=== PATIENT | female | born 1965 | race Caucasian/White ===

== ENCOUNTER 2020-06-18 16:45 | Inpatient (IN) | payer OTHER, SELFPAY ==
[2020-06-18] VITALS (8 sets, daily range): BP systolic 107–132; BP diastolic 40–59; PULSE 107–118; RESP 12–21; TEMP 37.1–37.7; O2SAT 95–98; BMI 75.6
--- NOTE | ~2020-06-18 | US_ITS ---
EXAMINATION: US ABDOMEN LIMITED CLINICAL INFORMATION: Transaminitis. COMPARISON: None TECHNIQUE: Real-time imaging of the right upper quadrant abdominal viscera. FINDINGS: PANCREAS: The visualized proximal portion of the pancreas is unremarkable. The distal portion is obscured secondary to overlying bowel gas. LIVER: The liver is normal in size. The liver contour is normal. Parenchymal echogenicity appears heterogeneous. No focal hepatic lesion. There is no intrahepatic biliary duct dilatation seen. Portal venous flow appears hepatofugal. GALLBLADDER: There is also distended. Gallbladder wall appears thickened to 0.6 cm. No gallstones are seen. COMMON BILE DUCT: Normal in caliber measuring 0.6 cm in diameter. RIGHT KIDNEY: No hydronephrosis. No renal calculi or focal parenchymal lesions. The kidney measures 13.4 cm in maximum dimension. FREE FLUID: Small volume of free fluid is noted. US/US abdomen limited IMPRESSION: 1. Heterogeneous appearance of the liver parenchyma suggesting underlying chronic liver disease. Portal vein flow appears hepatofugal, suspicious for sequelae of portal hypertension. No ductal dilatation identified. 2. Gallbladder wall thickening, nonspecific in the setting of liver disease and small volume of ascites. No gallstones identified.
--- NOTE | ~2020-06-18 | CT_ITS ---
EXAMINATION: CT HEAD WITHOUT CONTRAST CLINICAL INFORMATION: Altered mental status COMPARISON: None TECHNIQUE: Contiguous axial imaging was performed from the skull base to vertex without intravenous administration of contrast. This CT examination was performed using dose optimization techniques as appropriate, variously including the following: *Automated exposure control *Adjustment of mA and/or kV according to patient size (this includes techniques or standardized protocols for targeted exams where dose is matched to indication/reason for exam; i.e. extremities or head) *Use of iterative reconstruction technique DLP: 764 mGy-cm FINDINGS: No evidence of acute intracranial hemorrhage or extra-axial fluid collection. No evidence of mass lesion, mass effect or midline shift. The ventricles are symmetric in configuration. Basal cisterns are patent. Ventricles are slightly large in size in proportion to sulcal depth in keeping with mild global volume loss. No acute territorial infarction. The calvarium is intact. Limited views of the paranasal sinuses demonstrate multiple mucus retention cysts versus polyps within the right maxillary sinus. No air-fluid levels. Mastoid air cells are well aerated and middle ear cavities are clear. Cerumen within the external auditory canals bilaterally. Orbits unremarkable. CT/CT head/brain wo con IMPRESSION: No acute intracranial pathology.
--- NOTE | 2020-06-18 18:24 | ED.PSYCH ---
HPI - Psych General Chief Complaint: ETOH/Substance Use Stated Complaint: ams etoh Time Seen by Provider: 06/18/20 17:59 Source: patient Mode of arrival: EMS (Called by please) History of Present Illness HPI Narrative: Patient is a 55-year-old female with a past medical history of ulcerative colitis and hypertension who was brought in by EMS after bystanders called 911 because they observed the patient driving around in circles, police arrived and the patient states she was given a choice to go to the hospital or get arrested. The patient states she has not felt like herself since going to bed last night. She cannot elaborate on this further but just says she does not feel right. She states she has her faculties about her but she states something is wrong . She denies chest pain, shortness of breath, fever, nausea, vomiting or diarrhea, vomiting blood, bloody or black stools She denies drinking alcohol today, she denies using any street drugs or prescription drugs. She is focused on calling her mother to let her mother know where she is as she states she only stepped out to go to the grocery store. She does not know her mother's phone number because she does not have her phone on her and she does not have a memorized. Related Data Allergies Allergy/AdvReac Type Severity Reaction Status Date / Time No Known Allergies Allergy Verified 06/18/20 16:58 Review of Systems Review of Systems: Yes all other systems are reviewed and are negative [facility] Past Medical History Medical History No known health problems Social History Social History Alcohol intake: current Smoking Status: Unknown if ever smoked Use of substances other than those prescribed or required for medical reasons: No Advance Directives: No Advance Directives Information Provided: No Physical Exam Vital Signs: Vital Signs: Last Vital Signs Temp 99.6 F 06/18/20 16:52 Pulse 116 H 06/18/20 16:52 Resp 20 06/18/20 16:52 BP 129/46 L 06/18/20 16:52 Pulse Ox 95 06/18/20 16:52 Body Mass Index 75.6 Const: General: cooperative, comfortable, no acute distress and well developed Orientation/consciousness: patient oriented x3 Limitations: no limitations HENMT: Head: Yes normal to inspection Mouth: abnormal oral mucosae (Dried blood inside of mouth and around lips) Eyes: General: appearance normal, both eyes and all related structures Pupils: Equal, round and reactive pupils present EOM: EOMs intact bilaterally Neck: Neck: Yes normal visual inspection, Yes full ROM and Yes supple Resp: Effort & Inspection: normal respiratory effort and able to speak in complete sentences Auscultation: clear to auscultation bilaterally, no crackles, no rales, no rhonchi and no wheezes Cardio: Rate: regular rate Rhythm: regular rhythm Heart sounds: normal S1 and S2 GI: Inspection: Yes normal to inspection Palpation (GI): Soft to palpation and nontender Skin: General skin exam: no rashes or lesions noted Neuro: General: patient oriented x3 Cranial nerves: Yes Equal, round and reactive pupils present Extrem: General: Yes normal to inspection Psych: Appearance: disheveled Speech and movement: Slowed speech present (Psych) Affect: Indifferent affect present Attitude: cooperative Thought process: Illogical thought process present (Slightly) Thought content: Obsession(s) present Insight: Fair insight present (Psych) Judgement: Fair judgement present (Psych) Course Course Course Narrative: Patient is a 55-year-old female with unknown medical history who was brought in by EMS after bystanders called 911 because they observed the patient driving around in circles, police arrived and the patient states she was given a choice to go to the hospital or get arrested. Patient denies using ETOH or drugs and states she has been feeling this way since she went to bed last night. Will get labs, JACK, EtOH and head CT. Received paperwork from [facility] department stating they are requesting the patient is urine and blood work results because she is part of a criminal investigation. I reviewed this with the patient and she did give consent to send me labs over. Once labs and head CT have resulted, I will review with the patient again. Reevaluation(s) Reevaluation #1: Critical lab, hemoglobin is 5.5, hematocrit is 16.5. When queried, patient states that she has had a history of anemia but denies any bloody or black stools, denies vomiting blood. Admits to having had blood transfusions in the past. Stool guiac +. Patient consented to blood transfusion, will order type and screen and 2U RBC's. Head CT negative. Ordered B12 and folate. Will request admission. Time: 19:19 Time: 20:35 Reevaluation #3: Pt gums bleeding, minor amount of blood, ordered coags. Pt may need Vit K Pt to be admitted by Dr Cortes. MDM - Psych Lab Data Result diagrams: 06/18/20 18:45 06/18/20 18:45 Labs: Lab Results 06/18/20 06/18/20 06/18/20 Range/Units 18:45 18:45 18:45 WBC 10.2 (4.8-10.8) X10*3/uL RBC 1.38 L (4.20-5.50) X10*6/uL Hgb 5.5 L* (12.0-16.0) g/dl Hct 16.5 L* (37-47) % MCV 119.6 H (80-98) fL MCH 39.9 H (27.0-33.0) pg MCHC 33.3 (31.0-35.0) g/dl RDW 16.0 (11.0-16.0) % Plt Count 87 L (160-400) X10*3/uL MPV 11.9 (9.4-12.3) fL Immature Gran % (Auto) 1.1 H (0.0-0.4) % Neut % (Auto) 80.1 H (45-73) % Lymph % (Auto) 9.7 L (20-40) % [place] % (Auto) 8.2 (2-11) % Eos % (Auto) 0.4 (0-4) % Baso % (Auto) 0.5 (0-2) % Lymph # (Auto) 1.0 L (1.2-4.9) X10*3/uL [place] # (Auto) 0.8 (0.1-1.2) X10*3/uL Eos # (Auto) 0.0 (0.0-0.4) X10*3/uL Baso # (Auto) 0.1 (0.0-0.2) X10*3/uL Abs Immat Gran (auto) 0.11 H (0.00-0.03) X10*3/uL Absolute Neuts (auto) 8.2 (2.0-8.3) X10*3/uL Absolute Nucleated RBC 0.020 H (0.0-0.012) X10*3/uL Nucleated RBC % (auto) 0.2 (0.0-0.2) /100WBC Sodium 135 (135-145) mmol/L Potassium 5.6 H (3.3-5.1) mmol/L Chloride 107 (96-108) mmol/L Carbon Dioxide 16 L (22-29) mmol/L Anion Gap 18 (12-20) BUN 46 H (9-16) mg/dL Creatinine 1.91 H (0.5-1.4) mg/dL Estim Creat Clear Calc 60.6 Estimated GFR 27 Random Glucose 108 (60-115) mg/dL Calcium 7.9 L (8.4-10.2) mg/dL Total Bilirubin 7.8 H (0.0-1.0) mg/dL AST 117 H (5-31) U/L ALT 39 H (0-31) U/L Alkaline Phosphatase 127 H (39-117) U/L Ammonia 102 H (13-55) umol/L Total Protein 6.8 (6.5-8.0) g/dL Albumin 2.7 L (3.5-5.0) g/dL TSH 3.00 (0.32-4.0) uIU/mL Ethyl Alcohol mg/dL Blood Type Antibody Screen Crossmatch 06/18/20 06/18/20 Range/Units 18:45 19:38 WBC (4.8-10.8) X10*3/uL RBC (4.20-5.50) X10*6/uL Hgb (12.0-16.0) g/dl Hct (37-47) % MCV (80-98) fL MCH (27.0-33.0) pg MCHC (31.0-35.0) g/dl RDW (11.0-16.0) % Plt Count (160-400) X10*3/uL MPV (9.4-12.3) fL Immature Gran % (Auto) (0.0-0.4) % Neut % (Auto) (45-73) % Lymph % (Auto) (20-40) % [place] % (Auto) (2-11) % Eos % (Auto) (0-4) % Baso % (Auto) (0-2) % Lymph # (Auto) (1.2-4.9) X10*3/uL [place] # (Auto) (0.1-1.2) X10*3/uL Eos # (Auto) (0.0-0.4) X10*3/uL Baso # (Auto) (0.0-0.2) X10*3/uL Abs Immat Gran (auto) (0.00-0.03) X10*3/uL Absolute Neuts (auto) (2.0-8.3) X10*3/uL Absolute Nucleated RBC (0.0-0.012) X10*3/uL Nucleated RBC % (auto) (0.0-0.2) /100WBC Sodium (135-145) mmol/L Potassium (3.3-5.1) mmol/L Chloride (96-108) mmol/L Carbon Dioxide (22-29) mmol/L Anion Gap (12-20) BUN (9-16) mg/dL Creatinine (0.5-1.4) mg/dL Estim Creat Clear Calc Estimated GFR Random Glucose (60-115) mg/dL Calcium (8.4-10.2) mg/dL Total Bilirubin (0.0-1.0) mg/dL AST (5-31) U/L ALT (0-31) U/L Alkaline Phosphatase (39-117) U/L Ammonia (13-55) umol/L Total Protein (6.5-8.0) g/dL Albumin (3.5-5.0) g/dL TSH (0.32-4.0) uIU/mL Ethyl Alcohol 113 mg/dL Blood Type O Positive Antibody Screen NEGATIVE Crossmatch See Detail Imaging Data CT scan - head: Attestation: I personally reviewed and interpreted this imaging study as follows: My impression: No acute intracranial pathology Radiologist's impression: [address] [place], [place] [id number] Scan ReportSigned Patient: Sandoval Bonilla#: [id number]: 1965Acct:[id number]/Sex: 55 / FADM Date: 06/18/20Loc: HO.EDAttending Dr: Ordering Physician: Isabella Serra PA-C Date of Service: 06/18/20 Procedure(s): CT head/brain wo con Accession Number(s): [id number] cc: Isabella Serra PA-C~ EXAMINATION: CT HEAD WITHOUT CONTRAST CLINICAL INFORMATION: Altered mental status COMPARISON: None TECHNIQUE: Contiguous axial imaging was performed from the skull base to vertex without intravenous administration of contrast. This CT examination was performed using dose optimization techniques as appropriate, variously including the following: *Automated exposure control *Adjustment of mA and/or kV according to patient size (this includes techniques or standardized protocols for targeted exams where dose is matched to indication/reason for exam; i.e. extremities or head) *Use of iterative reconstruction technique DLP: 764 mGy-cm FINDINGS: No evidence of acute intracranial hemorrhage or extra-axial fluid collection. No evidence of mass lesion, mass effect or midline shift. The ventricles are symmetric in configuration. Basal cisterns are patent. Ventricles are slightly large in size in proportion to sulcal depth in keeping with mild global volume loss. No acute territorial infarction. The calvarium is intact. Limited views of the paranasal sinuses demonstrate multiple mucus retention cysts versus polyps within the right maxillary sinus. No air-fluid levels. Mastoid air cells are well aerated and middle ear cavities are clear. Cerumen within the external auditory canals bilaterally. Orbits unremarkable. CT/CT head/brain wo con IMPRESSION: No acute intracranial pathology. Dictated By:LIZETTE LANDIS MDSigned By:<Electronically signed by LIZETTE LANDIS MD in OV>06/18/201926 DD/ 182TD/TT: Sales Account Director: SB Discharge Plan Discharge Clinical Impression: Alcoholic intoxication, Anemia, Elevated liver function tests, Acute hyperkalemia Patient Disposition: Admitted As Inpatient
[2020-06-18 18:53] LABS: MANUAL DIFF FLAG NO
[2020-06-18 18:54] LABS: Basophils Absolute Auto 0.1 X10*3/uL (0.0-0.2); Basophils Percent Auto 0.5 % (0-2); Eosinophils Percent Auto 0.4 % (0-4); Imm Gran Abs Auto 0.11 X10*3/uL (0.00-0.03); Imm Gran Pct Auto 1.1 % (0.0-0.4); Lymphocytes Percent Auto 9.7 % (20-40); Mean Corpuscular HGB Conc 33.3 g/dl (31.0-35.0); Mean Corpuscular Hemoglobin 39.9 pg (27.0-33.0); Mean Platelet Volume 11.9 fL (9.4-12.3); Monocytes Absolute Auto 0.8 X10*3/uL (0.1-1.2); Monocytes Percent Auto 8.2 % (2-11); NRBC Pct Auto 0.2 /100WBC (0.0-0.2); Neutrophils Absolute Auto 8.2 X10*3/uL (2.0-8.3); Neutrophils Percent Auto 80.1 % (45-73); Red Blood Count 1.38 X10*6/uL (4.20-5.50); White Blood Count 10.2 X10*3/uL (4.8-10.8)
[2020-06-18 18:57] LABS: Hematocrit 16.5 % (37-47); Mean Corpuscular Volume 119.6 fL (80-98); Platelet Count 87 X10*3/uL (160-400)
[2020-06-18 19:03] LABS: Hemoglobin 5.5 g/dl (12.0-16.0)
[2020-06-18 19:16] LABS: Ammonia 102 umol/L (13-55)
[2020-06-18 19:21] LABS: Ethanol 113 mg/dL
[2020-06-18 19:34] LABS: Alanine Aminotransferase 39 U/L (0-31); Albumin Level 2.7 g/dL (3.5-5.0); Alkaline Phosphatase 127 U/L (39-117); Anion Gap 18 (12-20); Aspartate Amino Transferase 117 U/L (5-31); Bilirubin Total 7.8 mg/dL (0.0-1.0); Blood Urea Nitrogen 46 mg/dL (9-16); Calcium 7.9 mg/dL (8.4-10.2); Carbon Dioxide 16 mmol/L (22-29); Chloride 107 mmol/L (96-108); Creatinine Clr Calc Pharmacy 60.6; Estimated Glomerular Filt Rate 27; Glucose Random 108 mg/dL (60-115); Potassium 5.6 mmol/L (3.3-5.1); Sodium 135 mmol/L (135-145); Total Protein 6.8 g/dL (6.5-8.0)
--- NOTE | 2020-06-18 19:47 | PC.NURSE ---
pt in with provider, type an screen drawn.
[2020-06-18 20:55] LABS: Amphetamine Screen Urine Not Detected (Not Detect); Barbiturates, Urine Not Detected (Not Detect); Benzodiazepines Screen Urine Not Detected (Not Detect); Cannabinoid Screen Urine Not Detected (Not Detect); Cocaine Screen Urine Not Detected (Not Detect); Opiate Screen Urine Not Detected (Not Detect); Phencyclidine Screen Urine Not Detected (Not Detect)
[2020-06-18] MEDS: Calcium Gluconate/NaCl,Iso-Osm 1 GM/50 ML PLAST..BAG IV (21:19)
--- NOTE | 2020-06-18 21:59 | PC.NURSE ---
pt requesting to see provider. provider is aware.
--- NOTE | 2020-06-18 22:08 | PC.NURSE ---
pt reports drinking half a pint of [place] marn[place] daily. provider notified.
--- NOTE | 2020-06-18 22:11 | P.HPHOSP_ITS ---
History of Present Illness Date of Service: 06/18/20 Chief Complaint: weakness, altered This is a 55-year-old female with past medical history of alcohol abuse, ulcerative colitis who presents to the hospital after the police was called on her for driving erratically in a parking lot. Patient reports that she was grocery shopping and maybe her neighbor called the police because she was told she was driving erratically. She did feel dizzy starting last night, has been feeling weak since last night, denies having any chest pain, no shortness of breath, no headache, no change in vision, no abdominal pain nausea or vomiting, she reports that since being in the ED she started vomiting from her mouth although she feels that has to do with her gums and not to do with her vomiting blood or coughing up blood. She denies having any bright red blood per rectum, denies any melena or tarry stools. She denies using any NSAIDs. She is in clear alcohol withdrawal but when I asked her about her alcohol habits reports that she drinks about 1 to 2 times a week and only about 1-2 glasses of wine but tells me that she feels like she is withdrawing right now. She is also alcohol positive on arrival to the ED although denies drinking alcohol today. Reports her last drink was 2 days ago. On arrival to the ED patient has a temp of 99.6, heart rate of 116, blood pressure of 129/46 respiratory rate of 20, satting 95% on room air Labs are significant for WBC count of 10.2, hemoglobin of 5.5 with no previous level for comparison, hematocrit of 16.5, PT of 30.7 INR of 2.8, platelet count of 87, sodium of 135, potassium 5.6, BUN of 46, creatinine of 1.91 (no previous), she has calcium of 7.9, total bili of 7.8, AST of 117, ALT of 39, alk-phos of 127, ammonia of 102, albumin of 2.7, occult stool blood positive She tells me that she usually undergoes colonoscopy every 3 years, last colonoscopy was 2 years ago and they found polyps, reports that her applications support analyst was concerned about these polyps although they were benign. She right now adamantly refuses to be seen by applications support analyst and or have any EGD or colonoscopy in-patient and would like to follow-up with her applications support analyst as patient. She is agreeable to be admitted for treatment of anemia and alcohol withdrawal. Review of Systems Review of Systems: Yes all other systems are reviewed and are negative [facility] Medical History (Updated 06/19/20 @ 05:52 by Juan Jose Moore MD) Hypertension Ulcerative colitis Family History Mother No problems noted. Father Prostate cancer Surgical History (Updated 06/19/20 @ 05:46 by Juan Jose Moore MD) History of appendectomy History of Social History Household Members: Children Housing: House Do you presently have visiting nurse or other home services: No Alcohol intake: current Smoking Status: Unknown if ever smoked Use of substances other than those prescribed or required for medical reasons: No Advance Directives: No Advance Directives Information Provided: No Do you have thoughts of harming others: None Do you have a plan to hurt others: No Plan Recently lost weight without trying: No Meds Allergies Allergy/AdvReac Type Severity Reaction Status Date / Time No Known Allergies Allergy Verified 06/18/20 16:58 Active Medications: Current Medications Generic Name Dose Route Start Last Admin Trade Name Freq PRN Reason Stop Dose Admin Pharmacy Consult 1 each 06/18/20 19:55 Consult Rx Perform Med Rec MISCELLANE ONCE PRN Consult order Pharmacy Consult 1 each 06/18/20 22:10 Consult Rx Etoh Phenob Dosing MISCELLANE 06/18/20 22:11 ONCE ONE Protocol Home Medications Medication Instructions Recorded Confirmed Last Taken Type lisinopril 1 tab PO BEDTIME 06/18/20 06/18/20 06/17/20 History metoprolol succinate 1 tab PO DAILY 06/18/20 06/18/20 06/17/20 History trazodone 1 tab PO DAILY 06/18/20 06/18/20 06/17/20 History Physical Exam Vital Signs and Narrative: Vital Signs: Last Vital Signs Temp 99.4 F 06/18/20 21:17 Pulse 115 H 06/18/20 22:03 Resp 17 06/18/20 22:03 BP 117/51 L 06/18/20 22:03 Pulse Ox 98 06/18/20 22:03 Body Mass Index 75.6 Const: General: cooperative Orientation/consciousness: patient oriented x3 Eyes: Other: Sclera icterus Resp: Effort & Inspection: normal respiratory effort Cardio: Rate: regular rate Rhythm: regular rhythm GI: Palpation (GI): Soft to palpation Auscultation: normal bowel sounds Skin: Other: Jaundice Neuro: Other: Slow responding, has asterixis General: patient oriented x3 Extrem: General: Yes normal to inspection and Yes no pedal edema Results Labs CBC and Chem 7: 06/18/20 18:45 06/18/20 18:45 Labs: Laboratory Results - last 24 hr 06/18/20 06/18/20 06/18/20 18:45 18:45 18:45 MCV 119.6 H MCH 39.9 H MCHC 33.3 RDW 16.0 Plt Count 87 L MPV 11.9 Immature Gran % (Auto) 1.1 H Neut % (Auto) 80.1 H Lymph % (Auto) 9.7 L [place] % (Auto) 8.2 Eos % (Auto) 0.4 Baso % (Auto) 0.5 Lymph # (Auto) 1.0 L [place] # (Auto) 0.8 Eos # (Auto) 0.0 Baso # (Auto) 0.1 Abs Immat Gran (auto) 0.11 H Absolute Neuts (auto) 8.2 Absolute Nucleated RBC 0.020 H Nucleated RBC % (auto) 0.2 Anion Gap 18 Estim Creat Clear Calc 60.6 Estimated GFR 27 Random Glucose 108 Calcium 7.9 L Total Bilirubin 7.8 H AST 117 H ALT 39 H Alkaline Phosphatase 127 H Ammonia 102 H Total Protein 6.8 Albumin 2.7 L TSH 3.00 Urine Opiates Screen Ur Barbiturates Screen Ur Phencyclidine Scrn Ur Amphetamines Screen U Benzodiazepines Scrn Urine Cocaine Screen U Marijuana (THC) Screen Ethyl Alcohol Blood Type Antibody Screen Crossmatch 06/18/20 06/18/20 06/18/20 18:45 19:38 20:14 MCV MCH MCHC RDW Plt Count MPV Immature Gran % (Auto) Neut % (Auto) Lymph % (Auto) [place] % (Auto) Eos % (Auto) Baso % (Auto) Lymph # (Auto) [place] # (Auto) Eos # (Auto) Baso # (Auto) Abs Immat Gran (auto) Absolute Neuts (auto) Absolute Nucleated RBC Nucleated RBC % (auto) Anion Gap Estim Creat Clear Calc Estimated GFR Random Glucose Calcium Total Bilirubin AST ALT Alkaline Phosphatase Ammonia Total Protein Albumin TSH Urine Opiates Screen Not Detected Ur Barbiturates Screen Not Detected Ur Phencyclidine Scrn Not Detected Ur Amphetamines Screen Not Detected U Benzodiazepines Scrn Not Detected Urine Cocaine Screen Not Detected U Marijuana (THC) Screen Not Detected Ethyl Alcohol 113 Blood Type O Positive Antibody Screen NEGATIVE Crossmatch See Detail Imaging Radiologist's Impressions: Impressions Head CT 06/18/20 18:23 IMPRESSION: No acute intracranial pathology. Assessment and Plan (1) Macrocytic anemia: Status: Acute (2) Hyperammonemia: Status: Acute (3) Hyperbilirubinemia: Status: Acute (4) Alcoholic intoxication: Qualifiers: Complication of substance-induced condition: uncomplicated Qualified Code(s): F10.920 - Alcohol use, unspecified with intoxication, uncomplicated Status: Acute (5) Transaminitis: Status: Acute (6) Alcohol withdrawal: Status: Acute (7) Coagulopathy: Status: Acute This is a 55-year-old female with past medical history of ulcerative colitis as well as hypertension who presents to the hospital shown to have anemia as well as an alcohol withdrawal # macrocytic anemia - most likely multifactorial, patient does have positive stool occult blood, she also drinks alcohol therefore most likely B12 and folic acid deficient - no previous level to compare her hemoglobin 2, currently 5.5, - receiving 2 units of PRBC in the ED - patient is very adamant and refusing to be seen by GI and having, scope p.m. patient - will follow H&H with a threshold of above 7 hemoglobin and transfuse if necessary # alcohol withdrawal - alcohol level positive on arrival, patient very tremulous, tachycardic and is going through withdrawals actively - will start her on phenobarb protocol - thiamine and folic acid # hyperammonemia - most likely secondary to liver cirrhosis although no imaging it to confirm - although she is alert, oriented she is slow to answer questions - will start her on lactulose - follow mentation # coagulopathy - most likely secondary to liver cirrhosis in the setting of alcohol abuse - elevated INR of 2.8 - will give 1 dose of vitamin K - follow PT INR # transaminitis - most likely secondary to alcohol abuse and liver failure - has hyperbilirubinemia, hypoalbuminemia, elevated AST ALT, alk-phos - will obtain abdominal ultrasound - monitor with LFTs # hypertension - continue lisinopril DVT prophylaxis: SCDs
[2020-06-18 22:33] LABS: INTERNATIONAL NORM RATIO 2.8 (0.9-1.1); Prothrombin Time 33.7 SEC (10.8-13.0)
[2020-06-18 22:35] LABS: Partial Thromboplastin Time 49.1 SEC (24.1-38.0)
[2020-06-18 22:43] LABS: COVID-19 Test Negative (Negative)
[2020-06-18] MEDS: PHENobarbitaL sodium 130 MG/ML VIAL 219 MG IM (23:01)
[2020-06-19] VITALS (15 sets, daily range): BP systolic 130–152; BP diastolic 60–70; PULSE 91–118; RESP 16–22; TEMP 36.7–37.9; O2SAT 92–97
--- NOTE | 2020-06-19 01:34 | PC.NURSE ---
2300 REPORT FROM AIDA GODOY. PT SLEEPING, EASILY AROUSABLE TO VERBAL STIMULI. SKIN WARM AND DRY. RESP UNLABORED. DENIES N/V. TOLERATED SMALL AMOUNT OF FOOD ON PREVIOUS SHIFT. SECOND UNIT OF BLOOD INFUSING. 0000 - PT SLEEPING. NO DISTRESS NOTED. SINUS TACH 107-114. SATS 92-93% WHEN SLEEPING. O2 2L NC APPLIED. PT UPDATED ON PLAN AND AGREEABLE. 0115 - REPORT CALLED TO [facility] ON IM. [place] [facility] [place]
[2020-06-19] MEDS: PHENobarbitaL sodium 130 MG/ML VIAL 164 MG IM ×2 (02:33→05:29)
[2020-06-19] MEDS: 0.9 % Sodium Chloride Flush 3 ML SYRINGE IVFLUSH ×3 (02:35→17:11)
[2020-06-19] MEDS: Lactulose 20 GM/30 ML SOLUTION 30 GM PO ×2 (06:30→19:51)
[2020-06-19] MEDS: Lactated Ringers 1,000 ML 100 ML IVCONT (06:30)
[2020-06-19] MEDS: Phytonadione (Vit K1) 2.5 MG in 0.9 % Sodium Chloride 50 ML 50.25 MG IV (06:46)
[2020-06-19 06:53] LABS: Hemoglobin 7.1 g/dl (12.0-16.0); MANUAL DIFF FLAG SCAN; Mean Corpuscular Volume 107.2 fL (80-98); PLT CLUMP 1; SCAN SMEAR FLAG 1
[2020-06-19 06:57] LABS: Basophils Absolute Auto 0.1 X10*3/uL (0.0-0.2); Basophils Percent Auto 0.6 % (0-2); Eosinophils Absolute Auto 0.1 X10*3/uL (0.0-0.4); Eosinophils Percent Auto 0.9 % (0-4); Imm Gran Abs Auto 0.14 X10*3/uL (0.00-0.03); Imm Gran Pct Auto 1.3 % (0.0-0.4); Lymphocytes Absolute Auto 1.2 X10*3/uL (1.2-4.9); Lymphocytes Percent Auto 11.5 % (20-40); Mean Corpuscular HGB Conc 34.1 g/dl (31.0-35.0); Mean Corpuscular Hemoglobin 36.6 pg (27.0-33.0); Mean Platelet Volume 12.3 fL (9.4-12.3); Monocytes Absolute Auto 1.2 X10*3/uL (0.1-1.2); Monocytes Percent Auto 11.6 % (2-11); Neutrophils Absolute Auto 7.8 X10*3/uL (2.0-8.3); Neutrophils Percent Auto 74.1 % (45-73); Red Blood Count 1.94 X10*6/uL (4.20-5.50); Red Cell Distribution Width 20.9 % (11.0-16.0); White Blood Count 10.5 X10*3/uL (4.8-10.8)
[2020-06-19 07:12] LABS: Alanine Aminotransferase 37 U/L (0-31); Albumin Level 2.5 g/dL (3.5-5.0); Alkaline Phosphatase 117 U/L (39-117); Anion Gap 16 (12-20); Aspartate Amino Transferase 104 U/L (5-31); Bilirubin Direct 3.4 mg/dL (0.0-0.5); Bilirubin Total 8.7 mg/dL (0.0-1.0); Blood Urea Nitrogen 44 mg/dL (9-16); Calcium 8.1 mg/dL (8.4-10.2); Carbon Dioxide 19 mmol/L (22-29); Chloride 108 mmol/L (96-108); Creatinine Clr Calc Pharmacy 75.2; Estimated Glomerular Filt Rate 35; Glucose Random 110 mg/dL (60-115); Sodium 138 mmol/L (135-145); Total Protein 6.4 g/dL (6.5-8.0)
[2020-06-19 07:22] LABS: HBsAGNum1 0.19 S/CO (0.00-0.99); Hepatitis B Surface Antigen Negative (Negative); ~HepC Num1 0.23 S/CO (0.00-0.79); ~Hepatitis C Antibody Nonreactive (Nonreactive)
[2020-06-19 07:42] LABS: HBS Num1 > 1000.00 mIU/mL (0-7.99); HBc Num1 0.13 S/CO (0.00-0.79); Hepatitis A Antibody IgM 0.15 Index (0-0.79); Hepatitis B Core Antibody Nonreactive (Nonreactive); ~Hepatitis A Antibody IgM Nonreactive (Nonreactive); ~Hepatitis B Surface Antibody REACTIVE (Nonreactive)
[2020-06-19 07:46] LABS: Platelet Count 59 X10*3/uL (160-400)
[2020-06-19 07:47] LABS: Hematocrit 20.8 % (37-47)
[2020-06-19] MEDS: Folic Acid 1 MG TABLET PO (08:40)
[2020-06-19] MEDS: Thiamine HCL 100 MG TABLET PO (08:40)
[2020-06-19] MEDS: traZODone HCL 50 MG TABLET PO (08:40)
[2020-06-19] MEDS: Metoprolol Succinate ER 25 MG TAB.ER.24H PO (08:40)
--- NOTE | 2020-06-19 10:57 | MHC.CLN ---
WT USED FOR NUTRITION ASSESSMENT 75.6KG BMI 28.6 RECOMMEND ADMISSION RE-WEIGHT
--- NOTE | 2020-06-19 13:34 | HO.PM.IMPN ---
Subjective Subjective Date of Service: 06/19/20 Interval History: the patient was seen and evaluated this morning Laying in bed, feels anxious and having tremors Blood level improved to 7.1 after 2 units transfusion Denies any fever, chills or shortness of breath No reported other overnight events. Systemic review: Reported anxiety and tremors No chest pain, palpitation No shortness of breath or coughing No abdominal pain, nausea or vomiting No urinary symptoms No any rash or wounds Physical Exam Vital Signs: Vital Signs: Last Vital Signs Temp 99.4 F 06/19/20 11:57 Pulse 94 06/19/20 11:57 Resp 20 06/19/20 11:57 BP 133/61 06/19/20 11:57 Pulse Ox 93 06/19/20 11:57 Body Mass Index 75.6 Const: Other: Constitutional : Alert, oriented, not in distress Neck : Normal inspection, Supple Cardiovascular : RRR, S1 S2, no lower extremity edema Respiratory : Good bilateral air entry, no crackles, wheezes or rhonchi Gastrointestinal: soft, lax, Normal bowel sounds, mildly distended, nontender Skin : Warm/Dry, No rash Neurological : Alert & oriented, No focal deficit Objective Data Current Medications Generic Name Dose Route Start Last Admin Trade Name Freq PRN Reason Stop Dose Admin Acetaminophen 650 mg 06/19/20 01:13 Acetaminophen 325 Mg Tablet PO Q6H PRN Pain, Mild (Pain Scale 1-3) Docusate Sodium 100 mg 06/19/20 01:13 Docusate Sodium 100 Mg Capsule PO DAILY PRN Constipation Folic Acid 1 mg 06/19/20 09:00 06/19/20 08:40 Folic Acid 1 Mg Tablet PO 1 mg DAILY CHARLEE Administration Lactated Ringer's 1,000 mls @ 100 mls/hr 06/19/20 05:45 06/19/20 06:30 Lr IVCONT 100 mls/hr .Q10H CHARLEE Administration Lactulose 30 gm 06/19/20 05:45 06/19/20 06:30 Lactulose 20 Gm/30 Ml Solution PO 30 gm TID CHARLEE Administration Metoprolol Succinate 25 mg 06/19/20 09:00 06/19/20 08:40 Metoprolol Succinate Er 25 Mg Tab.Er.24h PO 25 mg DAILY CHARLEE Administration Protocol Ondansetron HCl 4 mg 06/19/20 01:13 Ondansetron Hcl 4 Mg/2 Ml Vial IVPUSH Q8H PRN Nausea and Vomiting Pharmacy Consult 1 each 06/18/20 19:55 Consult Rx Perform Med Rec MISCELLANE ONCE PRN Consult order Phenobarbital 45 mg 06/19/20 21:00 Phenobarbital 15 Mg Tablet PO 06/21/20 09:01 BID [facility] Protocol Phenobarbital 15 mg 06/24/20 09:00 Phenobarbital 15 Mg Tablet PO 06/25/20 09:01 DAILY [facility] Protocol Phenobarbital 15 mg 06/21/20 21:00 Phenobarbital 15 Mg Tablet PO 06/23/20 09:01 BID CHARLEE Protocol Sodium Chloride 3 ml 06/19/20 01:13 06/19/20 08:41 0.9 % Sodium Chloride Flush 3 Ml Syringe IVFLUSH 3 ml QSHIFT CHARLEE Administration Thiamine HCl 100 mg 06/19/20 09:00 06/19/20 08:40 Thiamine Hcl 100 Mg Tablet PO 100 mg DAILY CHARLEE Administration Trazodone HCl 50 mg 06/19/20 09:00 06/19/20 08:40 Trazodone Hcl 50 Mg Tablet PO 50 mg DAILY CHARLEE Administration Labs CBC & Chem 7: 06/19/20 05:15 06/19/20 05:15 Assessment and Plan (1) Macrocytic anemia: Status: Acute (2) Hyperammonemia: Status: Acute (3) Hyperbilirubinemia: Status: Acute (4) Alcoholic intoxication: Status: Acute (5) Transaminitis: Status: Acute (6) Alcohol withdrawal: Status: Acute (7) Coagulopathy: Status: Acute Assessment and Plan: This is a 55-year-old female with past medical history of ulcerative colitis as well as hypertension who presents to the hospital shown to have anemia as well as an alcohol withdrawal Symptomatic anemia GI bleed likely multifactorial, GIB, alcoholism, coagulopathy Improved to 7.1 from 5.5 after 2 units transfusion To give 3rd unit To get GI evaluation Monitor for bleeding Threshold of 7 to transfuse alcohol withdrawal Anxious, have significant tremors this morning Continue phenobarb protocol To give extra dose of phenobarbital Continue thiamine and folic acid Discussed need of quitting, she is not interested in talking to anyone about it as she has her own plan hyperammonemia Ultrasound showing chronic liver disease Keep on lactulose with target of 2 bowel movements daily coagulopathy elevated INR of 2.8 Received 1 dose of vitamin K follow PT INR transaminitis secondary to alcohol abuse and liver failure Abdominal ultrasound showing no obstruction but chronic liver disease Monitor LFT hypertension continue lisinopril Thrombocytopenia Platelets low likely secondary to alcoholism continue to monitor DVT prophylaxis: SCDs
--- NOTE | 2020-06-19 14:05 | MHC.CM.PN ---
Female 55 DX gib etoh withdrawl. She lives with her DTR. She is independent all functional mobility. DP home no services family transport.
[2020-06-19] MEDS: PHENobarbitaL sodium 65 MG/ML VIAL 130 MG IM (14:15)
[2020-06-19] MEDS: Octreotide Acetate 500 MCG in 0.9 % Sodium Chloride 500 ML 25.05 MCG IVCONT (18:06)
--- NOTE | 2020-06-19 18:55 | PC.NURSE ---
1636 Visible small amounts of blood noted coming from patients mouth. Increase in wipes with trace amounts of blood also noted in trash. Patient stated she noted that the bleeding had started the day prior. Dr. Castro made aware. Octerotide drip ordered and administered per JUN. Patient has no further complaints at this time.
[2020-06-19] MEDS: Sucralfate Oral Suspension 1 GM/10 ML ORAL.SUSP PO (19:49)
[2020-06-19] MEDS: PHENobarbitaL 15 MG TABLET 45 MG PO (19:50)
[2020-06-20] VITALS (7 sets, daily range): BP systolic 126–149; BP diastolic 53–66; PULSE 81–96; RESP 18–20; TEMP 36–37.8; O2SAT 91–98
[2020-06-20] MEDS: 0.9 % Sodium Chloride Flush 3 ML SYRINGE IVFLUSH ×4 (00:05→23:00)
[2020-06-20 06:35] LABS: Ammonia 89 umol/L (13-55)
[2020-06-20] MEDS: Sucralfate Oral Suspension 1 GM/10 ML ORAL.SUSP PO ×4 (07:20→19:36)
[2020-06-20 07:22] LABS: Hematocrit 23.1 % (37-47); Mean Corpuscular HGB Conc 34.6 g/dl (31.0-35.0); Mean Corpuscular Hemoglobin 36.2 pg (27.0-33.0); Mean Corpuscular Volume 104.5 fL (80-98); Mean Platelet Volume 12.7 fL (9.4-12.3); NRBC Pct Auto 0.2 /100WBC (0.0-0.2); Red Blood Count 2.21 X10*6/uL (4.20-5.50); Red Cell Distribution Width 23.9 % (11.0-16.0); White Blood Count 10.9 X10*3/uL (4.8-10.8)
[2020-06-20 07:27] LABS: INTERNATIONAL NORM RATIO 2.6 (0.9-1.1); Prothrombin Time 31.3 SEC (10.8-13.0)
[2020-06-20 07:29] LABS: Platelet Count 64 X10*3/uL (160-400)
[2020-06-20 07:37] LABS: Alanine Aminotransferase 35 U/L (0-31); Albumin Level 2.5 g/dL (3.5-5.0); Alkaline Phosphatase 112 U/L (39-117); Anion Gap 12 (12-20); Aspartate Amino Transferase 89 U/L (5-31); Bilirubin Direct 3.3 mg/dL (0.0-0.5); Bilirubin Total 10.3 mg/dL (0.0-1.0); Blood Urea Nitrogen 40 mg/dL (9-16); Carbon Dioxide 21 mmol/L (22-29); Chloride 109 mmol/L (96-108); Creatinine Clr Calc Pharmacy 72.8; Estimated Glomerular Filt Rate 34; Glucose Random 142 mg/dL (60-115); Sodium 137 mmol/L (135-145); Total Protein 6.2 g/dL (6.5-8.0)
[2020-06-20] MEDS: Metoprolol Succinate ER 25 MG TAB.ER.24H PO (07:59)
[2020-06-20] MEDS: Folic Acid 1 MG TABLET PO (08:00)
[2020-06-20] MEDS: Thiamine HCL 100 MG TABLET PO (08:00)
[2020-06-20] MEDS: PHENobarbitaL 15 MG TABLET 45 MG PO ×2 (08:02→19:33)
[2020-06-20] MEDS: Lactulose 20 GM/30 ML SOLUTION 30 GM PO ×2 (08:02→19:33)
--- NOTE | 2020-06-20 09:46 | PM.GICN ---
History of Present Illness Data of Consult Service Date: 06/20/20 Requesting physician: Yohana Castro Primary Care Provider: Bridget Platt--PCP; MD Farheen--GI HPI Reason for consult: Anemia/severe; ?hx of liver disease?;Hx of alcohol abuse, AltMental status 55 yo female who was brought to the ER for altered behavior:? of confusion, Mild elevation of alcohol level. The initial record lists known medical hx as Hypertension, ulcerative colitis. No documentation of alcohol hx or her UC. After meeting with patient earlier today she says she has had the U. Colitis diagnosis for a number of years. Her current [employer] is Dr. Lowe. He did a colo in ?2019.([facility]) She says that he saw evidence of ? scarring. She is not sure how much active inflamation there was. She has chosen not to take medication but is not really clear as to why. She is not on any treatment. She feels the disease may be more active due to over a month of diarrhea. She is not really seeing any blood. She admits to recent increase in drinking alcohol: 1/2 pint of [place] daily. She says this drinking has been present for about 1-2 months. She does admit that she has been under stress both @ home and work. She thinks she remembers that a few years ago she had been seeing Dr. Patel and there was some concern about her liver.(She recalls no specifics.) She has also not been eating very healthy for several months. Her weight has increased recently. She knows she is very sick. She says she will stop drinking. Review of Systems Constitutional: Constitutional: Reports difficulty sleeping, Reports lethargy, Reports malaise, Reports poor appetite and Reports weight gain ENT: Denies odynophagia Cardiovascular: Cardiovascular: Denies chest pain, Denies chest pain with activity, Denies epigastric discomfort, Denies irregular heart rhythm and Reports leg edema Respiratory: Comments: Patient denies any hx of asthma, sleep apnea. She never smoked. Gastrointestinal: Gastrointestinal: Reports as per HPI, Reports diarrhea, Denies odynophagia and Denies hematemesis Neurologic: Reports confusion (noted by others not herself--on admission) Comments: ER visit says she had been stopped prior to coming in to the ER because she was driving erratically. She says she was not drunk. Psychiatric: Psychiatric: Reports confusion (noted by others not herself--on admission) [facility] Past Medical History Medical History (Updated 06/20/20 @ 17:44 by Tere Verdugo MD) Hypertension Morbid obesity due to excess calories Ulcerative colitis Family History Family History (Updated 06/20/20 @ 17:52 by Tere Verdugo MD) Mother No problems noted. Father Prostate cancer Cirrhosis, alcoholic Brother No problems noted. Sister Heavy alcohol use Surgical History Surgical History (Updated 06/20/20 @ 17:44 by Tere Verdugo MD) History of appendectomy History of Hx of colonoscopy Social History Social History (Updated 06/20/20 @ 17:46 by Tere Verdugo MD) Household Members: Children Household Members Other:: 20 yo daughter just moved back in due to Covid. She is vegetarian/?conflict Housing: House Do you presently have visiting nurse or other home services: No Alcohol intake: current Smoking Status: Unknown if ever smoked Use of substances other than those prescribed or required for medical reasons: No Currently Displaying Signs/Symptoms of Drug Intoxication Withdrawal: No Advance Directives: No Advance Directives Information Provided: No Do you have thoughts of harming others: None Do you have a plan to hurt others: No Plan Recently lost weight without trying: No service: No Current occupational status: employed Meds Allergies Allergy/AdvReac Type Severity Reaction Status Date / Time No Known Allergies Allergy Verified 06/18/20 16:58 Active Medications: Current Medications Generic Name Dose Route Start Last Admin Trade Name Hilarioq PRN Reason Stop Dose Admin Acetaminophen 650 mg 06/19/20 01:13 Acetaminophen 325 Mg Tablet PO Q6H PRN Pain, Mild (Pain Scale 1-3) Docusate Sodium 100 mg 06/19/20 01:13 Docusate Sodium 100 Mg Capsule PO DAILY PRN Constipation Folic Acid 1 mg 06/19/20 09:00 06/20/20 08:00 Folic Acid 1 Mg Tablet PO 1 mg DAILY CHARLEE Administration Octreotide Acetate 500 mcg/ 501 mls @ 25.05 mls/hr 06/19/20 16:45 06/19/20 18:06 Sodium Chloride IVCONT 25 mcg/hr .Q20H CHARLEE 25.05 mls/hr Administration 25 MCG/HR Lactulose 30 gm 06/19/20 21:00 06/20/20 08:02 Lactulose 20 Gm/30 Ml Solution PO 30 gm BID CHARLEE Administration Metoprolol Succinate 25 mg 06/19/20 09:00 06/20/20 07:59 Metoprolol Succinate Er 25 Mg Tab.Er.24h PO 25 mg DAILY CHARLEE Administration Protocol Ondansetron HCl 4 mg 06/19/20 01:13 Ondansetron Hcl 4 Mg/2 Ml Vial IVPUSH Q8H PRN Nausea and Vomiting Pharmacy Consult 1 each 06/18/20 19:55 Consult Rx Perform Med Rec MISCELLANE ONCE PRN Consult order Phenobarbital 45 mg 06/19/20 21:00 06/20/20 08:02 Phenobarbital 15 Mg Tablet PO 06/21/20 09:01 45 mg BID CHARLEE Administration Protocol Phenobarbital 15 mg 06/24/20 09:00 Phenobarbital 15 Mg Tablet PO 06/25/20 09:01 DAILY [facility] Protocol Phenobarbital 15 mg 06/21/20 21:00 Phenobarbital 15 Mg Tablet PO 06/23/20 09:01 BID [facility] Protocol Sodium Chloride 3 ml 06/19/20 01:13 06/20/20 07:22 0.9 % Sodium Chloride Flush 3 Ml Syringe IVFLUSH 3 ml QSHIFT [facility] Administration Sucralfate 1 gm 06/19/20 21:00 06/20/20 07:20 Sucralfate Oral Suspension 1 Gm/10 Ml Oral.Susp PO 1 gm QIDACHS [facility] Administration Thiamine HCl 100 mg 06/19/20 09:00 06/20/20 08:00 Thiamine Hcl 100 Mg Tablet PO 100 mg DAILY [facility] Administration Trazodone HCl 50 mg 06/19/20 09:00 06/20/20 09:19 Trazodone Hcl 50 Mg Tablet PO Not Given DAILY [facility] Home Medications Medication Instructions Recorded Confirmed Last Taken Type lisinopril 1 tab PO BEDTIME 06/18/20 06/18/20 06/17/20 History metoprolol succinate 1 tab PO DAILY 06/18/20 06/18/20 06/17/20 History trazodone 1 tab PO DAILY 06/18/20 06/18/20 06/17/20 History Physical Exam Vital Signs: Vital Signs: Last Vital Signs Temp 99.9 F 06/20/20 08:00 Pulse 96 06/20/20 08:00 Resp 18 06/20/20 08:00 BP 139/59 L 06/20/20 08:00 Pulse Ox 96 06/20/20 08:00 Body Mass Index 75.6 Const: General: confusion (noted by others not herself--on admission) Orientation/consciousness: patient oriented x3 and confusion (noted by others not herself--on admission) Resp: Effort & Inspection: normal respiratory effort, able to speak in complete sentences, no respiratory distress and not tachypneic Auscultation: diminished lung sounds Cardio: Rate: regular rate Rhythm: regular rhythm GI: Other: See HPI Neuro: Other: [employer] +++ General: patient oriented x3 and confusion (noted by others not herself--on admission) Extrem: General: Yes pedal edema Results Labs CBC & Chem 7: 06/21/20 05:00 06/21/20 05:00 Labs: Short CBC 06/18/20 06/18/20 06/20/20 Range/Units 18:45 18:45 06:11 WBC 10.2 10.9 H (4.8-10.8) X10*3/uL Hgb 5.5 8.0 L (12.0-16.0) g/dl Hct 16.5 23.1 L (37-47) % Plt Count 87 64 L (160-400) X10*3/uL Smear Path Review SEE NOTE TSH 3.00 (0.32-4.0) uIU/mL BMP 06/20/20 06:11 Sodium 137 Potassium 5.0 Chloride 109 H Carbon Dioxide 21 L BUN 40 H Creatinine 1.59 H Calcium 8.0 L Liver Function 06/20/20 Range/Units 06:11 Total Bilirubin adm-7.8; 10.3 H (0.0-1.0) mg/dL Direct Bilirubin 3.3 H (0.0-0.5) mg/dL AST adm-117; 89 H (5-31) U/L ALT adm-39; 35 H (0-31) U/L Alkaline Phosphatase 112 (39-117) U/L Albumin adm-2.7; 2.5 L (3.5-5.0) g/dL ETHYL ALCOHOL: 113(06/18);AMMONIA: (3/11)-102--today89; INR-2.8 now-->2.6 Assessment and Plan (1) Anemia: Qualifiers: Anemia type: B12 deficiency Vitamin B12 deficiency anemia type: other dietary B12 deficiency Qualified Code(s): D51.3 - Other dietary vitamin B12 deficiency anemia Problem details: Has received 3 units of packed cells since admission. Status: Acute With higher Indirect bilirubin consider Hemolysis as playing potential role--check LDH, CPK;etc. With persistent change in BUN/Creatinine baseline renal function may not be normal (Has hx of hypertension, currently she says she has been taking her medication.) PATIENT ALSO HAS A HX OF ULCERATIVE COLITIS--I NEED MORE INFORMATION ON THIS WILL TRY TO GET FROM [facility] AND DR. LOWE. CHECK CRP, C. DIF AND STOOL FOR WBC. (2) Elevated liver function tests: Status: Acute IMPRESSION: 1. Heterogeneous appearance of the liver parenchyma suggesting underlying chronic liver disease. Portal vein flow appears hepatofugal, suspicious for sequelae of portal hypertension. No ductal dilatation identified. 2. Gallbladder wall thickening, nonspecific in the setting of liver disease and small volume of ascites. No gallstones identified. Labs and this U/S suggest Chronic liver disease with component of Fibrosis, Acute alcohol induced steatohepatitis can also be present QUESTION AT THIS TIME IS HOW MUCH IS CIRRHOSIS AND HOW MUCH IS STEATOHEPATITIS DUE TO THE ACTIVE ETOH INGESTION AND MARGINAL NUTRITION. (I addressed and counselled patient on this @ the time of my visit,, I was clear that her condition is critical,especially, if she should go into severe withdrawal or return to drinking.) Will follow--patient states she would like to continue with Dr. Lowe for her ongoing care. (She does not think he is aware of her liver disease.) (3) Coagulopathy: Status: Acute Can be related To CLD and poor nutrtion--Give Vitamin K 10mg parenterally for 3 days. Recheck INR (4) Alcoholic intoxication: Qualifiers: Complication of substance-induced condition: uncomplicated Qualified Code(s): F10.920 - Alcohol use, unspecified with intoxication, uncomplicated Status: Acute Agree with withdrawal protocol. Concern about this was discussed directly with the patient @ the time of visit. (5) Morbid obesity due to excess calories: Status: Acute Not specifically addressed @ this time. Patient does not want to know her weight.
--- NOTE | 2020-06-20 11:01 | P.PNIM_ITS ---
Subjective Subjective Date of Service: 06/20/20 Interval History: the patient was seen and evaluated this morning Laying in bed, feels better today with decreased anxiety and tremors. Blood level improved to 8 after 3 units transfusion No reported bloody bowel motions none Denies any fever, chills or shortness of breath No reported other overnight events. Systemic review: Reported anxiety and tremors which seems to be better today No chest pain, palpitation No shortness of breath or coughing No abdominal pain, nausea or vomiting No urinary symptoms No any rash or wounds Physical Exam Vital Signs: Vital Signs: Last Vital Signs Temp 99.9 F 06/20/20 08:00 Pulse 96 06/20/20 08:00 Resp 18 06/20/20 08:00 BP 139/59 L 06/20/20 08:00 Pulse Ox 96 06/20/20 08:00 Body Mass Index 75.6 Const: Other: Constitutional : Alert, oriented, not in distress Neck : Normal inspection, Supple Cardiovascular : RRR, S1 S2, no lower extremity edema Respiratory : Good bilateral air entry, no crackles, wheezes or rhonchi Gastrointestinal: soft, lax, Normal bowel sounds, mildly distended, nontender Skin : Warm/Dry, No rash Neurological : Alert & oriented, No focal deficit Objective Data Current Medications Generic Name Dose Route Start Last Admin Trade Name Hilarioq PRN Reason Stop Dose Admin Acetaminophen 650 mg 06/19/20 01:13 Acetaminophen 325 Mg Tablet PO Q6H PRN Pain, Mild (Pain Scale 1-3) Docusate Sodium 100 mg 06/19/20 01:13 Docusate Sodium 100 Mg Capsule PO DAILY PRN Constipation Folic Acid 1 mg 06/19/20 09:00 06/20/20 08:00 Folic Acid 1 Mg Tablet PO 1 mg DAILY CHARLEE Administration Octreotide Acetate 500 mcg/ 501 mls @ 25.05 mls/hr 06/19/20 16:45 06/19/20 18:06 Sodium Chloride IVCONT 25 mcg/hr .Q20H CHARLEE 25.05 mls/hr Administration 25 MCG/HR Lactulose 30 gm 06/19/20 21:00 06/20/20 08:02 Lactulose 20 Gm/30 Ml Solution PO 30 gm BID CHARLEE Administration Metoprolol Succinate 25 mg 06/19/20 09:00 06/20/20 07:59 Metoprolol Succinate Er 25 Mg Tab.Er.24h PO 25 mg DAILY CHARLEE Administration Protocol Ondansetron HCl 4 mg 06/19/20 01:13 Ondansetron Hcl 4 Mg/2 Ml Vial IVPUSH Q8H PRN Nausea and Vomiting Pharmacy Consult 1 each 06/18/20 19:55 Consult Rx Perform Med Rec MISCELLANE ONCE PRN Consult order Phenobarbital 45 mg 06/19/20 21:00 06/20/20 08:02 Phenobarbital 15 Mg Tablet PO 06/21/20 09:01 45 mg BID CHARLEE Administration Protocol Phenobarbital 15 mg 06/24/20 09:00 Phenobarbital 15 Mg Tablet PO 06/25/20 09:01 DAILY [facility] Protocol Phenobarbital 15 mg 06/21/20 21:00 Phenobarbital 15 Mg Tablet PO 06/23/20 09:01 BID [facility]E Protocol Sodium Chloride 3 ml 06/19/20 01:13 06/20/20 07:22 0.9 % Sodium Chloride Flush 3 Ml Syringe IVFLUSH 3 ml QSHIFT CHARLEE Administration Sucralfate 1 gm 06/19/20 21:00 06/20/20 07:20 Sucralfate Oral Suspension 1 Gm/10 Ml Oral.Susp PO 1 gm QIDACHS CHARLEE Administration Thiamine HCl 100 mg 06/19/20 09:00 06/20/20 08:00 Thiamine Hcl 100 Mg Tablet PO 100 mg DAILY CHARLEE Administration Trazodone HCl 50 mg 06/19/20 09:00 06/20/20 09:19 Trazodone Hcl 50 Mg Tablet PO Not Given DAILY [facility] Labs CBC & Chem 7: 06/20/20 06:11 06/20/20 06:11 Assessment and Plan (1) Macrocytic anemia: Status: Acute (2) Hyperammonemia: Status: Acute (3) Hyperbilirubinemia: Status: Acute (4) Alcoholic intoxication: Status: Acute (5) Transaminitis: Status: Acute (6) Alcohol withdrawal: Status: Acute (7) Coagulopathy: Status: Acute Assessment and Plan: This is a 55-year-old female with past medical history of ulcerative colitis as well as hypertension who presents to the hospital shown to have anemia as well as an alcohol withdrawal Symptomatic anemia GI bleed likely multifactorial, GIB, alcoholism, coagulopathy Improved to 8 from 5.5 after 3 units transfusion Monitor for bleeding Threshold of 7 to transfuse Started on PPI, octreotide and Carafate GI input appreciated, check LDH, CPK alcohol withdrawal Improving Continue phenobarb protocol Continue thiamine and folic acid Discussed need of quitting, she is not interested in talking to anyone about it as she has her own plan hyperammonemia Ultrasound showing chronic liver disease Keep on lactulose with target of 2 bowel movements daily coagulopathy elevated INR of 2.8 Received 1 dose of vitamin K Continue vitamin K for 3 days follow PT INR transaminitis secondary to alcohol abuse and liver failure Trending down next [place] Abdominal ultrasound showing no obstruction but chronic liver disease Monitor LFT hypertension continue lisinopril Thrombocytopenia Platelets low likely secondary to alcoholism continue to monitor DVT prophylaxis: SCDs
[2020-06-20 11:33] LABS: Gamma Glutamyl Transpeptidase 62 U/L (7-33); Lactate Dehydrogenase 595 U/L (122-220); Magnesium 1.3 mg/dL (1.6-2.6)
[2020-06-20 11:49] LABS: Folate 3.7 ng/mL (> or = 4.0); Vitamin B12 1467 pg/mL (200-900)
[2020-06-20] MEDS: Phytonadione (Vit K1) 10 MG in 0.9 % Sodium Chloride 50 ML 51 MG IV (12:44)
[2020-06-20] MEDS: Magnesium Sulfate/H2O 2 GM/50 ML PIGGYBACK IV (13:59)
[2020-06-20] MEDS: Octreotide Acetate 500 MCG in 0.9 % Sodium Chloride 500 ML 25.05 MCG IVCONT (13:59)
[2020-06-20 18:45] LABS: C Reactive Protein 1.61 mg/dL (< or = 0.50)
[2020-06-20] MEDS: traZODone HCL 50 MG TABLET PO (19:33)
[2020-06-21] VITALS (7 sets, daily range): BP systolic 114–160; BP diastolic 53–67; PULSE 72–80; RESP 18–20; TEMP 36.2–38.2; O2SAT 93–97
[2020-06-21] MEDS: Acetaminophen 325 MG TABLET 650 MG PO (04:11)
[2020-06-21 06:40] LABS: Anion Gap 12 (12-20); Blood Urea Nitrogen 39 mg/dL (9-16); Calcium 7.8 mg/dL (8.4-10.2); Carbon Dioxide 20 mmol/L (22-29); Chloride 108 mmol/L (96-108); Creatinine Clr Calc Pharmacy 57.3; Estimated Glomerular Filt Rate 26; Glucose Random 121 mg/dL (60-115); Hematocrit 24.2 % (37-47); Mean Corpuscular HGB Conc 33.1 g/dl (31.0-35.0); Mean Corpuscular Hemoglobin 35.1 pg (27.0-33.0); Mean Corpuscular Volume 106.1 fL (80-98); Mean Platelet Volume 12.7 fL (9.4-12.3); Potassium 4.8 mmol/L (3.3-5.1); Red Blood Count 2.28 X10*6/uL (4.20-5.50); Red Cell Distribution Width 24.3 % (11.0-16.0); Sodium 135 mmol/L (135-145)
[2020-06-21 06:47] LABS: Platelet Count 68 X10*3/uL (160-400)
[2020-06-21 07:49] LABS: Alanine Aminotransferase 35 U/L (0-31); Albumin Level 2.4 g/dL (3.5-5.0); Alkaline Phosphatase 111 U/L (39-117); Aspartate Amino Transferase 74 U/L (5-31); Bilirubin Direct 3.6 mg/dL (0.0-0.5); Bilirubin Total 11.1 mg/dL (0.0-1.0); Magnesium 1.5 mg/dL (1.6-2.6); Total Protein 6.4 g/dL (6.5-8.0)
[2020-06-21 07:58] LABS: INTERNATIONAL NORM RATIO 2.3 (0.9-1.1); Prothrombin Time 27.9 SEC (10.8-13.0)
[2020-06-21] MEDS: Lactulose 20 GM/30 ML SOLUTION 30 GM PO ×2 (08:28→21:06)
[2020-06-21] MEDS: Sucralfate Oral Suspension 1 GM/10 ML ORAL.SUSP PO ×4 (08:28→21:08)
[2020-06-21] MEDS: PHENobarbitaL 15 MG TABLET 45 MG PO (08:28)
[2020-06-21] MEDS: 0.9 % Sodium Chloride Flush 3 ML SYRINGE IVFLUSH (08:29)
[2020-06-21] MEDS: Metoprolol Succinate ER 25 MG TAB.ER.24H PO (08:29)
[2020-06-21] MEDS: Thiamine HCL 100 MG TABLET PO (08:29)
[2020-06-21] MEDS: Folic Acid 1 MG TABLET PO (08:29)
[2020-06-21] MEDS: Phytonadione (Vit K1) 10 MG in 0.9 % Sodium Chloride 50 ML 51 MG IV (10:14)
[2020-06-21] MEDS: Nystatin Powder 15 GM BOTTLE 1 APPL TOPICAL ×2 (10:14→22:04)
--- NOTE | 2020-06-21 10:46 | P.PNIM_ITS ---
Subjective Subjective Date of Service: 06/21/20 Interval History: the patient was seen and evaluated this morning Laying in bed, feels better today with decreased anxiety and tremors. Blood level stable around 8 after 3 units transfusion Bilirubin still going up, more jaundiced No reported bloody bowel motions none Denies any fever, chills or shortness of breath No reported other overnight events. Systemic review: Reported anxiety and tremors which seems to be better today No chest pain, palpitation No shortness of breath or coughing No abdominal pain, nausea or vomiting No urinary symptoms No any rash or wounds Physical Exam Vital Signs: Vital Signs: Last Vital Signs Temp 99 F 06/21/20 07:52 Pulse 76 06/21/20 07:52 Resp 18 06/21/20 07:52 BP 114/53 L 06/21/20 07:52 Pulse Ox 93 06/21/20 07:52 Body Mass Index 75.6 Const: Other: Constitutional : Alert, oriented, jaundiced, not in distress Neck : Normal inspection, Supple Cardiovascular : RRR, S1 S2, no lower extremity edema Respiratory : Good bilateral air entry, no crackles, wheezes or rhonchi Gastrointestinal: soft, lax, Normal bowel sounds, mildly distended, nontender Skin : Warm/Dry, No rash Neurological : Alert & oriented, No focal deficit Objective Data Current Medications Generic Name Dose Route Start Last Admin Trade Name Randolph PRN Reason Stop Dose Admin Acetaminophen 650 mg 06/19/20 01:13 06/21/20 04:11 Acetaminophen 325 Mg Tablet PO 650 mg Q6H PRN Administration Pain, Mild (Pain Scale 1-3) Docusate Sodium 100 mg 06/19/20 01:13 Docusate Sodium 100 Mg Capsule PO DAILY PRN Constipation Folic Acid 1 mg 06/19/20 09:00 06/21/20 08:29 Folic Acid 1 Mg Tablet PO 1 mg DAILY [facility] Administration Octreotide Acetate 500 mcg/ 501 mls @ 25.05 mls/hr 06/19/20 16:45 06/20/20 13:59 Sodium Chloride IVCONT 25 mcg/hr .Q20H [facility]LEE 25.05 mls/hr Administration 25 MCG/HR Magnesium Sulfate 2 gm in 50 mls @ 25 mls/hr 06/21/20 09:17 IV 06/21/20 11:16 ONCE ONE Lactulose 30 gm 06/19/20 21:00 06/21/20 08:28 Lactulose 20 Gm/30 Ml Solution PO 30 gm BID [facility] Administration Metoprolol Succinate 25 mg 06/19/20 09:00 06/21/20 08:29 Metoprolol Succinate Er 25 Mg Tab.Er.24h PO 25 mg DAILY [facility] Administration Protocol Nystatin 1 appl 06/21/20 09:00 06/21/20 10:14 Nystatin Powder 15 Gm Bottle TOPICAL 1 appl BID [facility] Administration Protocol Ondansetron HCl 4 mg 06/19/20 01:13 Ondansetron Hcl 4 Mg/2 Ml Vial IVPUSH Q8H PRN Nausea and Vomiting Pharmacy Consult 1 each 06/18/20 19:55 Consult Rx Perform Med Rec MISCELLANE ONCE PRN Consult order Phenobarbital 15 mg 06/24/20 09:00 Phenobarbital 15 Mg Tablet PO 06/25/20 09:01 DAILY [facility] Protocol Phenobarbital 15 mg 06/21/20 21:00 Phenobarbital 15 Mg Tablet PO 06/23/20 09:01 BID [facility] Protocol Prednisolone Sodium Phosphate 40 mg 06/21/20 09:20 Prednisolone Sodium Phosphate 15 Mg/5 Ml Solution PO DAILY [facility] Sodium Chloride 3 ml 06/19/20 01:13 06/21/20 08:29 0.9 % Sodium Chloride Flush 3 Ml Syringe IVFLUSH 3 ml QSHIFT [facility] Administration Sucralfate 1 gm 06/19/20 21:00 06/21/20 08:28 Sucralfate Oral Suspension 1 Gm/10 Ml Oral.Susp PO 1 gm QIDACHS [facility] Administration Thiamine HCl 100 mg 06/19/20 09:00 06/21/20 08:29 Thiamine Hcl 100 Mg Tablet PO 100 mg DAILY [facility] Administration Trazodone HCl 50 mg 06/20/20 21:00 06/20/20 19:33 Trazodone Hcl 50 Mg Tablet PO 50 mg BEDTIME [facility] Administration Labs CBC & Chem 7: 06/21/20 05:00 06/21/20 05:00 Assessment and Plan (1) Macrocytic anemia: Status: Acute (2) Hyperammonemia: Status: Acute (3) Hyperbilirubinemia: Status: Acute (4) Alcoholic intoxication: Status: Acute (5) Transaminitis: Status: Acute (6) Alcohol withdrawal: Status: Acute (7) Coagulopathy: Status: Acute Assessment and Plan: This is a 55-year-old female with past medical history of ulcerative colitis as well as hypertension who presents to the hospital shown to have anemia as well as an alcohol withdrawal Symptomatic anemia GI bleed likely multifactorial, GIB, alcoholism, coagulopathy Stable around 8 from 5.5 after 3 units transfusion Monitor for bleeding Threshold of 7 to transfuse Continue on PPI, octreotide and Carafate GI input appreciated, waiting outpatient GI documents, to discuss EGD with the patient Alcoholic hepatitis transaminitis secondary to alcohol abuse Maddery score 80 with elevated bilirubin and PT Elevated LDH Bilirubin still going up Abdominal ultrasound showing no obstruction but chronic liver disease Started on prednisone orally Monitor LFT alcohol withdrawal Improving Continue phenobarb protocol Continue thiamine and folic acid Discussed need of quitting, she is not interested in talking to anyone about it as she has her own plan hyperammonemia Ultrasound showing chronic liver disease Keep on lactulose with target of 2 bowel movements daily coagulopathy elevated INR of 2.3 Continue daily IV vitamin K for 2/3 days follow PT INR Hypomagnesemia Mg of 1.5 Replacement given, to monitor hypertension continue lisinopril Thrombocytopenia Platelets low likely secondary to alcoholism continue to monitor DVT prophylaxis: SCDs
[2020-06-21] MEDS: Octreotide Acetate 500 MCG in 0.9 % Sodium Chloride 500 ML 25.05 MCG IVCONT (11:06)
[2020-06-21] MEDS: Magnesium Sulfate/H2O 2 GM/50 ML PIGGYBACK IV (11:10)
[2020-06-21 11:36] LABS: Lactate Dehydrogenase 613 U/L (122-220)
--- NOTE | 2020-06-21 15:52 | P.PNGI_ITS ---
Subjective Subjective Date of Service: 06/23/20 Interval History: Patient more alert and conversant. She denies tremulousness. (She still has asterixis.) She insists she will not drink again. Physical Exam Vital Signs: Vital Signs: Last Vital Signs Temp 98.5 F 06/21/20 15:35 Pulse 72 06/21/20 15:35 Resp 18 06/21/20 15:35 BP 124/57 L 06/21/20 15:35 Pulse Ox 97 06/21/20 15:35 Body Mass Index 75.6 Const: General: cooperative and tired appearing Nutritional Appearance: obese Orientation/consciousness: patient oriented x3 Limitations: altered mental status (improved from yesterday, still slight sluggish with responses) Resp: Effort & Inspection: normal respiratory effort and able to speak in complete sentences Cardio: Rate: regular rate Rhythm: regular rhythm GI: Inspection: Yes obesity Palpation (GI): nontender and no masses Ausc ultation: normal bowel sounds Rectal Exam - Female: deferred Neuro: General: patient oriented x3 Motor exam (neuro): Asterixis during motor activity present (less prominent than yesterday) Extrem: Right upper extremity: edema Objective Data Labs CBC & Chem 7: 06/23/20 08:15 06/23/20 08:15 Labs: Laboratory Results - last 24 hr 06/20/20 06/21/20 06/21/20 06:11 05:00 05:00 WBC 12.0 H RBC 2.28 L Hgb 8.0 L Hct 24.2 L MCV 106.1 H MCH 35.1 H MCHC 33.1 RDW 24.3 H Plt Count 68 L MPV 12.7 H Absolute Nucleated RBC 0.000 Nucleated RBC % (auto) 0.0 PT 27.9 H INR 2.3 H Sodium Potassium Chloride Carbon Dioxide Anion Gap BUN Creatinine Estim Creat Clear Calc Estimated GFR Random Glucose Calcium Magnesium Total Bilirubin Direct Bilirubin AST ALT Alkaline Phosphatase Lactate Dehydrogenase C-Reactive Protein 1.61 H Total Protein Albumin 06/21/20 05:00 WBC RBC Hgb Hct MCV MCH MCHC RDW Plt Count MPV Absolute Nucleated RBC Nucleated RBC % (auto) PT INR Sodium 135 Potassium 4.8 Chloride 108 Carbon Dioxide 20 L Anion Gap 12 BUN 39 H Creatinine 2.02 H Estim Creat Clear Calc 57.3 Estimated GFR 26 Random Glucose 121 H Calcium 7.8 L Magnesium 1.5 L Total Bilirubin 11.1 H Direct Bilirubin 3.6 H AST 74 H ALT 35 H Alkaline Phosphatase 111 Lactate Dehydrogenase 613 H C-Reactive Protein Total Protein 6.4 L Albumin 2.4 L Stool studies have not been obtained. Progress Note: A&P Assessment and plan (1) Anemia: Problem details: Has received 3 units of packed cells since admission. Status: Acute Assessment and Plan: I did discuss with patient possibility of doing egd on this admission. This would help us clarify any risk of rebleeding when she leaves. Also allows for evaluation for varices. With hx of UC. this still will require further evalua tion. Keep NPO tonite, repeat labs early AM to assess what might need to be done and when (2) Steatohepatitis due to ingestible alcohol: Status: Acute Assessment and Plan: Bilirubin trending up. I do believe that patient is also hemolyzing. She received 3 units of blood which also adds to increase in Indirect due to slowed metabolism of byproducts of red cells by the inflamed liver. Agree with steroids at this time. Monitor closely K+, Mg, and blood sugars. Will follow. Fall Risk Details Current Medications: Current Medications Generic Name Dose Route Start Last Admin Trade Name Freq PRN Reason Stop Dose Admin Acetaminophen 650 mg 06/19/20 01:13 06/21/20 04:11 Acetaminophen 325 Mg Tablet PO 650 mg Q6H PRN Administration Pain, Mild (Pain Scale 1-3) Docusate Sodium 100 mg 06/19/20 01:13 Docusate Sodium 100 Mg Capsule PO DAILY PRN Constipation Folic Acid 1 mg 06/19/20 09:00 06/21/20 08:29 Folic Acid 1 Mg Tablet PO 1 mg DAILY [facility] Administration Octreotide Acetate 500 mcg/ 501 mls @ 25.05 mls/hr 06/19/20 16:45 06/21/20 11:06 Sodium Chloride IVCONT 25 mcg/hr .Q20H [facility] 25.05 mls/hr Administration 25 MCG/HR Lactulose 30 gm 06/19/20 21:00 06/21/20 08:28 Lactulose 20 Gm/30 Ml Solution PO 30 gm BID [facility] Administration Metoprolol Succinate 25 mg 06/19/20 09:00 06/21/20 08:29 Metoprolol Succinate Er 25 Mg Tab.Er.24h PO 25 mg DAILY [facility] Administration Protocol Nystatin 1 appl 06/21/20 09:00 06/21/20 10:14 Nystatin Powder 15 Gm Bottle TOPICAL 1 appl BID [facility] Administration Protocol Ondansetron HCl 4 mg 06/19/20 01:13 Ondansetron Hcl 4 Mg/2 Ml Vial IVPUSH Q8H PRN Nausea and Vomiting Pharmacy Consult 1 each 06/18/20 19:55 Consult Rx Perform Med Rec MISCELLANE ONCE PRN Consult order Phenobarbital 15 mg 06/24/20 09:00 Phenobarbital 15 Mg Tablet PO 06/25/20 09:01 DAILY [facility] Protocol Phenobarbital 15 mg 06/21/20 21:00 Phenobarbital 15 Mg Tablet PO 06/23/20 09:01 BID [facility] Protocol Prednisolone Sodium Phosphate 40 mg 06/21/20 09:20 06/21/20 11:22 Prednisolone Sodium Phosphate 15 Mg/5 Ml Solution PO Not Given DAILY [facility] Sodium Chloride 3 ml 06/19/20 01:13 06/21/20 08:29 0.9 % Sodium Chloride Flush 3 Ml Syringe IVFLUSH 3 ml QSHIFT [facility] Administration Sucralfate 1 gm 06/19/20 21:00 06/21/20 12:39 Sucralfate Oral Suspension 1 Gm/10 Ml Oral.Susp PO 1 gm QIDACHS [facility] Administration Thiamine HCl 100 mg 06/19/20 09:00 06/21/20 08:29 Thiamine Hcl 100 Mg Tablet PO 100 mg DAILY [facility] Administration Trazodone HCl 50 mg 06/20/20 21:00 06/20/20 19:33 Trazodone Hcl 50 Mg Tablet PO 50 mg BEDTIME [facility] Administration Time Spent With Patient Time: Total time spent is greater than 50% in coordination of care (as documented) at patient's floor/unit and/or counseling patient:25 min. Time with patient: 25 - 35 minutes
[2020-06-21] MEDS: traZODone HCL 50 MG TABLET PO (21:06)
[2020-06-21] MEDS: PHENobarbitaL 15 MG TABLET PO (21:08)
[2020-06-22] VITALS (9 sets, daily range): BP systolic 93–130; BP diastolic 50–61; PULSE 64–72; RESP 18–20; TEMP 36.2–37.2; O2SAT 93–98; BMI 32.5
[2020-06-22 02:05] LABS: OBS Int Ctl Valid YES; OBS1 POS (NEG)
[2020-06-22 02:14] LABS: Leukocytes Stool Qualitative NEGATIVE (NEGATIVE)
[2020-06-22 07:02] LABS: Hemoglobin 7.3 g/dl (12.0-16.0); Mean Corpuscular HGB Conc 33.2 g/dl (31.0-35.0); Mean Corpuscular Hemoglobin 36.1 pg (27.0-33.0); Mean Corpuscular Volume 108.9 fL (80-98); Mean Platelet Volume 12.2 fL (9.4-12.3); Red Blood Count 2.02 X10*6/uL (4.20-5.50); Red Cell Distribution Width 21.8 % (11.0-16.0); White Blood Count 10.6 X10*3/uL (4.8-10.8)
[2020-06-22 07:03] LABS: INTERNATIONAL NORM RATIO 2.5 (0.9-1.1); Prothrombin Time 29.6 SEC (10.8-13.0)
[2020-06-22] MEDS: Octreotide Acetate 500 MCG in 0.9 % Sodium Chloride 500 ML 25.05 MCG IVCONT (07:14)
[2020-06-22 07:32] LABS: Platelet Count 67 X10*3/uL (160-400)
[2020-06-22 07:35] LABS: Alanine Aminotransferase 28 U/L (0-31); Alkaline Phosphatase 100 U/L (39-117); Anion Gap 10 (12-20); Aspartate Amino Transferase 51 U/L (5-31); Bilirubin Direct 3.1 mg/dL (0.0-0.5); Bilirubin Total 9.1 mg/dL (0.0-1.0); Blood Urea Nitrogen 40 mg/dL (9-16); Calcium 7.5 mg/dL (8.4-10.2); Carbon Dioxide 20 mmol/L (22-29); Chloride 107 mmol/L (96-108); Estimated Glomerular Filt Rate 24; Glucose Random 118 mg/dL (60-115); Lactate Dehydrogenase 520 U/L (122-220); Potassium 4.3 mmol/L (3.3-5.1); Sodium 133 mmol/L (135-145); Total Protein 5.4 g/dL (6.5-8.0)
[2020-06-22] MEDS: Nystatin Powder 15 GM BOTTLE 1 APPL TOPICAL ×2 (08:18→19:45)
[2020-06-22] MEDS: Lactulose 20 GM/30 ML SOLUTION 30 GM PO ×2 (08:19→19:42)
[2020-06-22] MEDS: Metoprolol Succinate ER 25 MG TAB.ER.24H PO (08:19)
[2020-06-22] MEDS: Thiamine HCL 100 MG TABLET PO (08:19)
[2020-06-22] MEDS: PHENobarbitaL 15 MG TABLET PO ×2 (08:20→19:43)
[2020-06-22] MEDS: Folic Acid 1 MG TABLET PO (08:20)
[2020-06-22] MEDS: Sucralfate Oral Suspension 1 GM/10 ML ORAL.SUSP PO ×4 (08:22→19:42)
[2020-06-22] MEDS: Omeprazole 20 MG CAPSULE.DR PO ×2 (09:23→18:18)
[2020-06-22] MEDS: 0.9 % Sodium Chloride 1,000 ML 80 ML IVCONT ×2 (09:24→22:00)
--- NOTE | 2020-06-22 11:43 | MHC.CM.PN ---
per multi dis rounds dno anticapted dc date at this time
--- NOTE | 2020-06-22 12:42 | P.CONNP_ITS ---
History of Present Illness Reason for Consult Consult date: 06/22/20 Reason for consult: TREMAINE Chief Complaint Chief complaint: GI Bleed, Alcohol withdrawal History of Present Illness Narrative: Asked tro see PT for TREMAINE in setting of GIB, and acute liver dysfunc on ques liver cirrhosis and in etoh wdrawl. Information obtained from PT and EHR. She isvague about her liver dis histroy. Admits to recent heavy ETOH use past 6 months. No H/O kidney probs. no kidney stones. No Fhx kid probs. Avoids NSAID use. On adm very confused and noted severe anmeia and now s/p 3 uprbc xfusion. Review of Systems Review of Systems Yes all other systems are reviewed and are negative Constitutional: Reports difficulty sleeping, Reports lethargy, Reports malaise, Reports poor appetite and Reports weight gain Denies odynophagia Cardiovascular: Denies chest pain, Denies chest pain with activity, Denies epigastric discomfort, Denies irregular heart rhythm and Reports leg edema Gastrointestinal: Reports as per HPI, Reports diarrhea, Denies odynophagia and Denies hematemesis Reports confusion (noted by others not herself--on admission) Psychiatric: Reports confusion (noted by others not herself--on admission) [facility] Past Medical History Medical History (Updated 06/21/20 @ 15:58 by Tere Verdugo MD) Hypertension Morbid obesity due to excess calories Ulcerative colitis Family History Family History (Updated 06/20/20 @ 17:52 by Tere Verdugo MD) Mother No problems noted. Father Prostate cancer Cirrhosis, alcoholic Brother No problems noted. Sister Heavy alcohol use Surgical History Surgical History (Updated 06/20/20 @ 17:44 by Tere Verdugo MD) History of appendectomy History of Hx of colonoscopy Social History Social History (Updated 06/20/20 @ 17:46 by Tere Verdugo MD) Household Members: Children Household Members Other:: 20 yo daughter just moved back in due to Covid. She is vegetarian/?conflict Housing: House Do you presently have visiting nurse or other home services: No Alcohol intake: current Smoking Status: Unknown if ever smoked Use of substances other than those prescribed or required for medical reasons: No Currently Displaying Signs/Symptoms of Drug Intoxication Withdrawal: No Advance Directives: No Advance Directives Information Provided: No Do you have thoughts of harming others: None Do you have a plan to hurt others: No Plan Recently lost weight without trying: No service: No Current occupational status: employed Meds Allergies Allergy/AdvReac Type Severity Reaction Status Date / Time No Known Allergies Allergy Verified 06/18/20 16:58 Active Medications: Current Medications Generic Name Dose Route Start Last Admin Trade Name Hilarioq PRN Reason Stop Dose Admin Acetaminophen 650 mg 06/19/20 01:13 06/21/20 04:11 Acetaminophen 325 Mg Tablet PO 650 mg Q6H PRN Administration Pain, Mild (Pain Scale 1-3) Docusate Sodium 100 mg 06/19/20 01:13 Docusate Sodium 100 Mg Capsule PO DAILY PRN Constipation Folic Acid 1 mg 06/19/20 09:00 06/22/20 08:20 Folic Acid 1 Mg Tablet PO 1 mg DAILY [facility] Administration Octreotide Acetate 500 mcg/ 501 mls @ 25.05 mls/hr 06/19/20 16:45 06/22/20 07:16 Sodium Chloride IVCONT Infused .Q20H [facility]LEE Infusion 25 MCG/HR Sodium Chloride 1,000 mls @ 80 mls/hr 06/22/20 09:15 06/22/20 09:24 Ns IVCONT 80 mls/hr .[id number] [facility] Administration Lactulose 30 gm 06/19/20 21:00 06/22/20 08:19 Lactulose 20 Gm/30 Ml Solution PO 30 gm BID [facility] Administration Metoprolol Succinate 25 mg 06/19/20 09:00 06/22/20 08:19 Metoprolol Succinate Er 25 Mg Tab.Er.24h PO 25 mg DAILY [facility] Administration Protocol Nystatin 1 appl 06/21/20 09:00 06/22/20 08:18 Nystatin Powder 15 Gm Bottle TOPICAL 1 appl BID [facility] Administration Protocol Omeprazole 20 mg 06/22/20 09:15 06/22/20 09:23 Omeprazole 20 Mg Capsule. PO 20 mg BID@0630,1630 [facility] Administration Ondansetron HCl 4 mg 06/19/20 01:13 Ondansetron Hcl 4 Mg/2 Ml Vial IVPUSH Q8H PRN Nausea and Vomiting Pharmacy Consult 1 each 06/18/20 19:55 Consult Rx Perform Med Rec MISCELLANE ONCE PRN Consult order Phenobarbital 15 mg 06/24/20 09:00 Phenobarbital 15 Mg Tablet PO 06/25/20 09:01 DAILY [facility] Protocol Phenobarbital 15 mg 06/21/20 21:00 06/22/20 08:20 Phenobarbital 15 Mg Tablet PO 06/23/20 09:01 15 mg BID [facility] Administration Protocol Prednisolone Sodium Phosphate 40 mg 06/21/20 09:20 06/22/20 08:19 Prednisolone Sodium Phosphate 15 Mg/5 Ml Solution PO Not Given DAILY [facility] Sodium Chloride 3 ml 06/19/20 01:13 06/22/20 08:17 0.9 % Sodium Chloride Flush 3 Ml Syringe IVFLUSH Not Given QSHIFT [facility] Sucralfate 1 gm 06/19/20 21:00 06/22/20 11:41 Sucralfate Oral Suspension 1 Gm/10 Ml Oral.Susp PO 1 gm QIDACHS [facility] Administration Thiamine HCl 100 mg 06/19/20 09:00 06/22/20 08:19 Thiamine Hcl 100 Mg Tablet PO 100 mg DAILY [facility] Administration Trazodone HCl 50 mg 06/20/20 21:00 06/21/20 21:06 Trazodone Hcl 50 Mg Tablet PO 50 mg BEDTIME [facility] Administration Home Medications Medication Instructions Recorded Confirmed Last Taken Type lisinopril 1 tab PO BEDTIME 06/18/20 06/18/20 06/17/20 History metoprolol succinate 1 tab PO DAILY 06/18/20 06/18/20 06/17/20 History trazodone 1 tab PO DAILY 06/18/20 06/18/20 06/17/20 History Physical Exam Vital Signs: Last Vital Signs Temp 98.9 F 06/22/20 12:00 Pulse 70 06/22/20 12:00 Resp 20 06/22/20 12:00 BP 117/58 L 06/22/20 12:00 Pulse Ox 96 06/22/20 12:00 Body Mass Index 32.5 Const Other: Constitutional : Alert, oriented, jaundiced, not in distress Neck : Normal inspection, Supple Cardiovascular : RRR, S1 S2, no lower extremity edema Respiratory : Good bilateral air entry, no crackles, wheezes or rhonchi Gastrointestinal: soft, lax, Normal bowel sounds, mildly distended, nontender Skin : Warm/Dry, No rash Neurological : Alert & oriented, No focal deficit General: cooperative, comfortable, no acute distress, well developed, confusion (noted by others not herself--on admission) and tired appearing Nutritional Appearance: obese Orientation/consciousness: patient oriented x3 and confusion (noted by others not herself--on admission) Limitations: no limitations and altered mental status (improved from yesterday, still slight sluggish with responses) HENMT Head: Yes normal to inspection Mouth: abnormal oral mucosae (Dried blood inside of mouth and around lips) Eyes Other: Sclera icterus General: appearance normal, both eyes and all related structures Pupils: Equal, round and reactive pupils present EOM: EOMs intact bilaterally Neck Neck: Yes normal visual inspection, Yes full ROM and Yes supple Resp Effort & Inspection: normal respiratory effort, able to speak in complete sentences, no respiratory distress and not tachypneic Auscultation: clear to auscultation bilaterally, no crackles, no rales, no rhonchi, no wheezes and diminished lung sounds Cardio Other: Constitutional : Alert, oriented, jaundiced, not in distress Neck : Normal inspection, Supple Cardiovascular : RRR, S1 S2, no lower extremity edema Respiratory : Good bilateral air entry, no crackles, wheezes or rhonchi Gastrointestinal: soft, lax, Normal bowel sounds, mildly distended, nontender Skin : Warm/Dry, No rash Neurological : Alert & oriented, No focal deficit Rate: regular rate Rhythm: regular rhythm Heart sounds: normal S1 and S2 GI Other: See HPI Inspection: Yes normal to inspection and Yes obesity Palpation (GI): Soft to palpation, nontender and no masses Auscultation: normal bowel sounds Rectal Exam - Female: deferred Skin Other: Jaundice General skin exam: no rashes or lesions noted Neuro Other: Asterixis +++ General: patient oriented x3 and confusion (noted by others not herself--on admission) Cranial nerves: Yes Equal, round and reactive pupils present Motor exam (neuro): Asterixis during motor activity present (less prominent than yesterday) Extrem General: Yes normal to inspection, Yes no pedal edema and Yes pedal edema Right upper extremity: edema Psych Appearance: disheveled Speech and movement: Slowed speech present (Psych) Affect: Indifferent affect present Attitude: cooperative Thought process: Illogical thought process present (Slightly) Thought content: Obsession(s) present Insight: Fair insight present (Psych) Judgement: Fair judgement present (Psych) Results Lab Results Result Diagrams: 06/22/20 05:22 06/22/20 05:22 Lab results: Chemistry 06/20/20 06/21/20 06/22/20 06:11 05:00 05:22 Sodium 137 135 133 L Potassium 5.0 4.8 4.3 Carbon Dioxide 21 L 20 L 20 L BUN 40 H 39 H 40 H Creatinine 1.59 H 2.02 H 2.15 H Calcium 8.0 L 7.8 L 7.5 L Hematology 06/20/20 06/21/20 06/22/20 06:11 05:00 05:22 WBC 10.9 H 12.0 H 10.6 Hgb 8.0 L 8.0 L 7.3 L Plt Count 64 L 68 L 67 L Assessment and Plan (1) Anemia: Qualifiers: Anemia type: B12 deficiency Vitamin B12 deficiency anemia type: other dietary B12 deficiency Qualified Code(s): D51.3 - Other dietary vitamin B12 deficiency anemia Problem details: Has received 3 units of packed cells since admission. Status: Acute I did discuss with patient possibility of doing egd on this admission. This would help us clarify any risk of rebleeding when she leaves. Also allows for evaluation for varices. With hx of UC. this still will require further evaluation. Keep NPO tonite, repeat labs early AM to assess what might need to be done and when (2) Steatohepatitis due to ingestible alcohol: Status: Acute 1. Non-Olguric TREMAINE: c/w acute liver dysfunc and severe anemia with Scr 1.5 to 2.1 today; may have underlying CKD as do not have prior labs HRS type 1 is also a concern and if SCr cont to increase or UOP amy then will add midrdine and IV alb Other poss causes for TREMAINE: Obs Uropathy, AGN or AIN all seem unlikely as does a TMA ( low PLTs likley d/t cirrhosis/splenomeg etc..) Xfusion related rxn seems unlikley but is in the differential and LDH is elevated 2. Liver injury: acute and chronic..now getting stdss for acute alchol hepatits component 3. Anemai: GIB 4. UC: can be assoc with kidney stones and rarely other vasculitis tyoe disrders REC: sero and urine studies as ordered; avoid NToxins; may need IV albumin and midridne if concern for HRS tyoe 1 becomes more of a concern;renal U/S Will follow suresh with team
--- NOTE | 2020-06-22 14:54 | HO.PM.IMPN ---
Subjective Subjective Date of Service: 06/22/20 Interval History: Patient was seen and evaluated at bedside Denies any bloody stool Systemic review: No chest pain, palpitation No shortness of breath or coughing No abdominal pain, nausea or vomiting No urinary symptoms No any rash or wounds Physical Exam Vital Signs: Vital Signs: Last Vital Signs Temp 97.9 F 06/22/20 13:25 Pulse 70 06/22/20 13:25 Resp 18 06/22/20 13:25 BP 108/56 L 06/22/20 13:25 Pulse Ox 96 06/22/20 12:00 Body Mass Index 32.5 Const: General: cooperative Orientation/consciousness: patient oriented x3 Eyes: Other: Sclera icterus Resp: Effort & Inspection: normal respiratory effort Cardio: Other: Constitutional : Alert, oriented, jaundiced, not in distress Neck : Normal inspection, Supple Cardiovascular : RRR, S1 S2, no lower extremity edema Respiratory : Good bilateral air entry, no crackles, wheezes or rhonchi Gastrointestinal: soft, lax, Normal bowel sounds, mildly distended, nontender Skin : Warm/Dry, No rash Neurological : Alert & oriented, No focal deficit Rate: regular rate Rhythm: regular rhythm GI: Palpation (GI): Soft to palpation Auscultation: normal bowel sounds Skin: Other: Jaundice Neuro: Other: Slow responding, has asterixis General: patient oriented x3 Extrem: General: Yes normal to inspection and Yes no pedal edema Objective Data Current Medications Generic Name Dose Route Start Last Admin Trade Name Freq PRN Reason Stop Dose Admin Acetaminophen 650 mg 06/19/20 01:13 06/21/20 04:11 Acetaminophen 325 Mg Tablet PO 650 mg Q6H PRN Administration Pain, Mild (Pain Scale 1-3) Docusate Sodium 100 mg 06/19/20 01:13 Docusate Sodium 100 Mg Capsule PO DAILY PRN Constipation Folic Acid 1 mg 06/19/20 09:00 06/22/20 08:20 Folic Acid 1 Mg Tablet PO 1 mg DAILY [facility]E Administration Octreotide Acetate 500 mcg/ 501 mls @ 25.05 mls/hr 06/19/20 16:45 06/22/20 07:16 Sodium Chloride IVCONT Infused .Q20H [facility]E Infusion 25 MCG/HR Sodium Chloride 1,000 mls @ 80 mls/hr 06/22/20 09:15 06/22/20 09:24 Ns IVCONT 80 mls/hr .[id number] [facility] Administration Albumin Human 100 mls @ 100 mls/hr 06/22/20 16:00 Kedbumin 25 % IV 06/23/20 16:59 Q8H [facility]E Lactulose 30 gm 06/19/20 21:00 06/22/20 08:19 Lactulose 20 Gm/30 Ml Solution PO 30 gm BID [facility]LEE Administration Metoprolol Succinate 25 mg 06/19/20 09:00 06/22/20 08:19 Metoprolol Succinate Er 25 Mg Tab.Er.24h PO 25 mg DAILY [facility] Administration Protocol Nystatin 1 appl 06/21/20 09:00 06/22/20 08:18 Nystatin Powder 15 Gm Bottle TOPICAL 1 appl BID [facility]LEE Administration Protocol Omeprazole 20 mg 06/22/20 09:15 06/22/20 09:23 Omeprazole 20 Mg Capsule.Dr PO 20 mg BID@0630,1630 [facility] Administration Ondansetron HCl 4 mg 06/19/20 01:13 Ondansetron Hcl 4 Mg/2 Ml Vial IVPUSH Q8H PRN Nausea and Vomiting Pharmacy Consult 1 each 06/18/20 19:55 Consult Rx Perform Med Rec MISCELLANE ONCE PRN Consult order Phenobarbital 15 mg 06/24/20 09:00 Phenobarbital 15 Mg Tablet PO 06/25/20 09:01 DAILY [facility] Protocol Phenobarbital 15 mg 06/21/20 21:00 06/22/20 08:20 Phenobarbital 15 Mg Tablet PO 06/23/20 09:01 15 mg BID [facility]LEE Administration Protocol Prednisolone Sodium Phosphate 40 mg 06/21/20 09:20 06/22/20 08:19 Prednisolone Sodium Phosphate 15 Mg/5 Ml Solution PO Not Given DAILY [facility] Sodium Chloride 3 ml 06/19/20 01:13 06/22/20 08:17 0.9 % Sodium Chloride Flush 3 Ml Syringe IVFLUSH Not Given QSHIFT [facility] Sucralfate 1 gm 06/19/20 21:00 06/22/20 11:41 Sucralfate Oral Suspension 1 Gm/10 Ml Oral.Susp PO 1 gm QIDACHS [facility] Administration Thiamine HCl 100 mg 06/19/20 09:00 06/22/20 08:19 Thiamine Hcl 100 Mg Tablet PO 100 mg DAILY [facility] Administration Trazodone HCl 50 mg 06/20/20 21:00 06/21/20 21:06 Trazodone Hcl 50 Mg Tablet PO 50 mg BEDTIME [facility] Administration Labs CBC & Chem 7: 06/22/20 05:22 06/22/20 05:22 Assessment and Plan (1) Macrocytic anemia: Status: Acute (2) Hyperammonemia: Status: Acute (3) Hyperbilirubinemia: Status: Acute (4) Alcoholic intoxication: Status: Acute (5) Transaminitis: Status: Acute (6) Alcohol withdrawal: Status: Acute (7) Coagulopathy: Status: Acute Assessment and Plan: This is a 55-year-old female with past medical history of ulcerative colitis as well as hypertension who presents to the hospital shown to have anemia as well as an alcohol withdrawal Symptomatic anemia secondary to GI bleed likely multifactorial, GIB, alcoholism, coagulopathy 5.5 on admission received 3 units of PRBCs hemoglobin improved to 8 Hemoglobin dropped to 7.2 Will transfuse 1 more unit of PRBCs Continue on PPI, octreotide and Carafate GI input appreciated, patient wants to hold off on EGD for now Alcoholic hepatitis transaminitis trending down secondary to alcohol abuse Maddery score 80 with elevated bilirubin and PT Elevated LDH Bilirubin trending down Abdominal ultrasound showing no obstruction but chronic liver disease Continue prednisone Monitor LFT alcohol withdrawal Improving Continue phenobarb protocol Continue thiamine and folic acid Discussed need of quitting, she is not interested in talking to anyone about it as she has her own plan Hyperammonemia improving Ultrasound showing chronic liver disease Keep on lactulose with target of 2 bowel movements daily Yenifer likely multifactorial from dehydration GI bleed and underlying liver disease Monitor kidney function Hold lisinopril Avoid nephrotoxins coagulopathy elevated INR of 2.3 Will order vitamin K follow PT INR Hypomagnesemia Mg of 1.5 Replacement given, to monitor hypertension Hold lisinopril for acute kidney injury Thrombocytopenia Platelets low likely secondary to alcoholism continue to monitor DVT prophylaxis: SCDs
[2020-06-22 17:41] LABS: Haptoglobin <8 mg/dL (43-212)
[2020-06-22] MEDS: Albumin Human 25 % 100 ML IV (18:17)
[2020-06-22] MEDS: 0.9 % Sodium Chloride Flush 3 ML SYRINGE IVFLUSH (18:18)
[2020-06-22] MEDS: Phytonadione (Vit K1) 10 MG in 0.9 % Sodium Chloride 50 ML 51 MG IV (19:42)
[2020-06-22] MEDS: traZODone HCL 50 MG TABLET PO (19:43)
[2020-06-23] MEDS: Albumin Human 25 % 100 ML IV ×3 (00:34→16:24)
[2020-06-23] MEDS: 0.9 % Sodium Chloride Flush 3 ML SYRINGE IVFLUSH ×4 (00:34→23:49)
[2020-06-23] MEDS: Octreotide Acetate 500 MCG in 0.9 % Sodium Chloride 500 ML 25.05 MCG IVCONT ×2 (03:10→20:14)
[2020-06-23 04:00] VITALS: BP 113/53; PULSE 64; RESP 18; TEMP 36.6; O2SAT 97
[2020-06-23 06:00] VITALS: BMI 42.2
[2020-06-23 06:26] LABS: INTERNATIONAL NORM RATIO 2.5 (0.9-1.1); Prothrombin Time 29.8 SEC (10.8-13.0)
[2020-06-23] MEDS: Omeprazole 20 MG CAPSULE.DR PO ×2 (06:32→16:24)
[2020-06-23 07:36] VITALS: BP 128/61; PULSE 67; RESP 20; TEMP 36.3; O2SAT 95
[2020-06-23] MEDS: Folic Acid 1 MG TABLET PO (08:39)
[2020-06-23] MEDS: Lactulose 20 GM/30 ML SOLUTION 30 GM PO ×2 (08:39→20:14)
[2020-06-23] MEDS: Thiamine HCL 100 MG TABLET PO (08:39)
[2020-06-23] MEDS: Metoprolol Succinate ER 25 MG TAB.ER.24H PO (08:39)
[2020-06-23] MEDS: Sucralfate Oral Suspension 1 GM/10 ML ORAL.SUSP PO ×4 (08:39→20:13)
[2020-06-23] MEDS: Nystatin Powder 15 GM BOTTLE 1 APPL TOPICAL ×2 (08:40→20:30)
[2020-06-23] MEDS: 0.9 % Sodium Chloride 1,000 ML 80 ML IVCONT ×2 (08:40→20:14)
[2020-06-23 09:33] LABS: MANUAL DIFF FLAG NO
[2020-06-23 09:45] LABS: Basophils Absolute Auto 0.1 X10*3/uL (0.0-0.2); Basophils Percent Auto 0.7 % (0-2); Eosinophils Absolute Auto 0.4 X10*3/uL (0.0-0.4); Eosinophils Percent Auto 4.1 % (0-4); Hematocrit 28.1 % (37-47); Hemoglobin 9.4 g/dl (12.0-16.0); Imm Gran Abs Auto 0.11 X10*3/uL (0.00-0.03); Imm Gran Pct Auto 1.3 % (0.0-0.4); Lymphocytes Absolute Auto 1.1 X10*3/uL (1.2-4.9); Lymphocytes Percent Auto 12.4 % (20-40); Mean Corpuscular HGB Conc 33.5 g/dl (31.0-35.0); Mean Corpuscular Hemoglobin 35.5 pg (27.0-33.0); Mean Platelet Volume 12.4 fL (9.4-12.3); Monocytes Absolute Auto 1.4 X10*3/uL (0.1-1.2); Monocytes Percent Auto 16.7 % (2-11); NRBC Pct Auto 0.2 /100WBC (0.0-0.2); Neutrophils Absolute Auto 5.5 X10*3/uL (2.0-8.3); Neutrophils Percent Auto 64.8 % (45-73); Red Blood Count 2.65 X10*6/uL (4.20-5.50); Red Cell Distribution Width 23.2 % (11.0-16.0); White Blood Count 8.5 X10*3/uL (4.8-10.8)
[2020-06-23 09:55] LABS: Platelet Count 67 X10*3/uL (160-400)
[2020-06-23] MEDS: PHENobarbitaL 15 MG TABLET PO ×2 (10:06→10:11)
[2020-06-23 10:10] LABS: Alanine Aminotransferase 24 U/L (0-31); Albumin Level 2.6 g/dL (3.5-5.0); Alkaline Phosphatase 102 U/L (39-117); Anion Gap 10 (12-20); Aspartate Amino Transferase 56 U/L (5-31); Bilirubin Total 9.9 mg/dL (0.0-1.0); Blood Urea Nitrogen 38 mg/dL (9-16); Calcium 7.5 mg/dL (8.4-10.2); Carbon Dioxide 20 mmol/L (22-29); Chloride 110 mmol/L (96-108); Creatinine Clr Calc Pharmacy 39.5; Estimated Glomerular Filt Rate 26; Glucose Random 110 mg/dL (60-115); Potassium 4.6 mmol/L (3.3-5.1); Sodium 135 mmol/L (135-145); Total Protein 5.8 g/dL (6.5-8.0)
[2020-06-23 11:18] VITALS: BP 132/62; PULSE 66; RESP 20; TEMP 36.6; O2SAT 97
--- NOTE | 2020-06-23 11:52 | P.PNNP_ITS ---
Subjective Subjective Date of Service: 06/23/20 Principal diagnosis: TREMAINE Physical Exam Vital Signs: Vital Signs: Last Vital Signs Temp 97.9 F 06/23/20 11:18 Pulse 66 06/23/20 11:18 Resp 20 06/23/20 11:18 BP 132/62 06/23/20 11:18 Pulse Ox 97 06/23/20 11:18 Body Mass Index 42.2 Const: Other: Constitutional : Alert, oriented, jaundiced, not in distress Neck : Normal inspection, Supple Cardiovascular : RRR, S1 S2, no lower extremity edema Respiratory : Good bilateral air entry, no crackles, wheezes or rhonchi Gastrointestinal: soft, lax, Normal bowel sounds, mildly distended, nontender Skin : Warm/Dry, No rash Neurological : Alert & oriented, No focal deficit General: cooperative, comfortable, no acute distress, well developed, confusion (noted by others not herself--on admission) and tired appearing Nutritional Appearance: obese Orientation/consciousness: patient oriented x3 and confusion (noted by others not herself--on admission) Limitations: no limitations and altered mental status (improved from yesterday, still slight sluggish with responses) HENMT: Head: Yes normal to inspection Mouth: abnormal oral mucosae (Dried blood inside of mouth and around lips) Eyes: Other: Sclera icterus General: appearance normal, both eyes and all related structures Pupils: Equal, round and reactive pupils present EOM: EOMs intact bilaterally Neck: Neck: Yes normal visual inspection, Yes full ROM and Yes supple Resp: Effort & Inspection: normal respiratory effort, able to speak in complete sentences, no respiratory distress and not tachypneic Auscultation: clear to auscultation bilaterally, no crackles, no rales, no rhonchi, no wheezes and diminished lung sounds Cardio: Other: Constitutional : Alert, oriented, jaundiced, not in distress Neck : Normal inspection, Supple Cardiovascular : RRR, S1 S2, no lower extremity edema Respiratory : Good bilateral air entry, no crackles, wheezes or rhonchi Gastrointestinal: soft, lax, Normal bowel sounds, mildly distended, nontender Skin : Warm/Dry, No rash Neurological : Alert & oriented, No focal deficit Rate: regular rate Rhythm: regular rhythm Heart sounds: normal S1 and S2 GI: Other: See HPI Inspection: Yes normal to inspection and Yes obesity Palpation (GI): Soft to palpation, nontender and no masses Auscultation: normal bowel sounds Rectal Exam - Female: deferred Skin: Other: Jaundice General skin exam: no rashes or lesions noted Neuro: Other: Asterixis +++ General: patient oriented x3 and confusion (noted by others not herself--on admission) Cranial nerves: Yes Equal, round and reactive pupils present Motor exam (neuro): Asterixis during motor activity present (less prominent than yesterday) Extrem: General: Yes normal to inspection, Yes no pedal edema and Yes pedal edema Right upper extremity: edema Psych: Appearance: disheveled Speech and movement: Slowed speech present (Psych) Affect: Indifferent affect present Attitude: cooperative Thou ght process: Illogical thought process present (Slightly) Thought content: Obsession(s) present Insight: Fair insight present (Psych) Judgement: Fair judgement present (Psych) Objective Data Labs CBC & Chem 7: 06/23/20 08:15 06/23/20 08:15 Labs: Laboratory Results - last 24 hr 06/21/20 06/22/20 06/23/20 05:00 09:15 05:19 WBC RBC Hgb Hct MCV MCH MCHC RDW Plt Count MPV Immature Gran % (Auto) Neut % (Auto) Lymph % (Auto) [place] % (Auto) Eos % (Auto) Baso % (Auto) Lymph # (Auto) [place] # (Auto) Eos # (Auto) Baso # (Auto) Abs Immat Gran (auto) Absolute Neuts (auto) Absolute Nucleated RBC Nucleated RBC % (auto) Haptoglobin <8 L PT 29.8 H INR 2.5 H Sodium Potassium Chloride Carbon Dioxide Anion Gap BUN Creatinine Estim Creat Clear Calc Estimated GFR Random Glucose Calcium Total Bilirubin AST ALT Alkaline Phosphatase Total Protein Albumin Blood Type O Positive Antibody Screen NEGATIVE Crossmatch See Detail 06/23/20 06/23/20 08:15 08:15 WBC 8.5 RBC 2.65 L D Hgb 9.4 L D Hct 28.1 L D MCV 106.0 H MCH 35.5 H MCHC 33.5 RDW 23.2 H Plt Count 67 L MPV 12.4 H Immature Gran % (Auto) 1.3 H Neut % (Auto) 64.8 Lymph % (Auto) 12.4 L [place] % (Auto) 16.7 H Eos % (Auto) 4.1 H Baso % (Auto) 0.7 Lymph # (Auto) 1.1 L [place] # (Auto) 1.4 H Eos # (Auto) 0.4 Baso # (Auto) 0.1 Abs Immat Gran (auto) 0.11 H Absolute Neuts (auto) 5.5 Absolute Nucleated RBC 0.020 H Nucleated RBC % (auto) 0.2 Haptoglobin PT INR Sodium 135 Potassium 4.6 Chloride 110 H Carbon Dioxide 20 L Anion Gap 10 L BUN 38 H Creatinine 2.01 H Estim Creat Clear Calc 39.5 Estimated GFR 26 Random Glucose 110 Calcium 7.5 L Total Bilirubin 9.9 H AST 56 H ALT 24 Alkaline Phosphatase 102 Total Protein 5.8 L Albumin 2.6 L D Blood Type Antibody Screen Crossmatch Assessment & Plan Assessment and plan (1) Anemia: Problem details: Has received 3 units of packed cells since admission. Status: Acute (2) Steatohepatitis due to ingestible alcohol: Status: Acute (3) Macrocytic anemia: Status: Acute (4) Hyperammonemia: Status: Acute (5) Hyperbilirubinemia: Status: Acute (6) Alcoholic intoxication: Status: Acute (7) Transaminitis: Status: Acute (8) Alcohol withdrawal: Status: Acute (9) Coagulopathy: Status: Acute Assessment and Plan: 1. Non-Olguric TREMAINE: c/w acute liver dysfunc and severe anemia with Scr 1.5 to 2.1 to 2.0 today HRS type 1 is also a concern and if SCr cont to increase or UOP amy then will add midrdine and IV alb Other poss causes for TREMAINE: Obs Uropathy, AGN or AIN all seem unlikely as does a TMA ( low PLTs likley d/t cirrhosis/splenomeg etc..) Xfusion related rxn seems unlikley but is in the differential and LDH is elevated 2. Liver injury: acute and chronic..now getting stdss for acute alchol hepatits component 3. Anemai: GIB 4. UC: can be assoc with kidney stones and rarely other vasculitis tyoe disrders REC: cont IV albumin/octreotide; d/c lisinopril; avoid NToxins; track UOP; add midirine if BP decr or UOP decr or Scr increases Time Spent With Patient Time: Total time spent is greater than 50% in coordination of care (as documented) at patient's floor/unit and/or counseling patient:
--- NOTE | 2020-06-23 12:57 | HO.PM.IMPN ---
Subjective Subjective Date of Service: 06/23/20 Interval History: Patient was seen and evaluated at bedside Denies any bloody stool Reported weakness Systemic review: No chest pain, palpitation No shortness of breath or coughing No abdominal pain, nausea or vomiting No urinary symptoms No any rash or wounds Physical Exam Vital Signs: Vital Signs: Last Vital Signs Temp 97.9 F 06/23/20 11:18 Pulse 66 06/23/20 11:18 Resp 20 06/23/20 11:18 BP 132/62 06/23/20 11:18 Pulse Ox 97 06/23/20 11:18 Body Mass Index 42.2 Const: General: cooperative Orientation/consciousness: patient oriented x3 Eyes: Other: Sclera icterus Resp: Effort & Inspection: normal respiratory effort Cardio: Rate: regular rate Rhythm: regular rhythm GI: Palpation (GI): Soft to palpation Auscultation: normal bowel sounds Skin: Other: Jaundice Neuro: General: patient oriented x3 Extrem: General: Yes normal to inspection and Yes no pedal edema Objective Data Current Medications Generic Name Dose Route Start Last Admin Trade Name Freq PRN Reason Stop Dose Admin Acetaminophen 650 mg 06/19/20 01:13 06/21/20 04:11 Acetaminophen 325 Mg Tablet PO 650 mg Q6H PRN Administration Pain, Mild (Pain Scale 1-3) Docusate Sodium 100 mg 06/19/20 01:13 Docusate Sodium 100 Mg Capsule PO DAILY PRN Constipation Folic Acid 1 mg 06/19/20 09:00 06/23/20 08:39 Folic Acid 1 Mg Tablet PO 1 mg DAILY [facility]E Administration Octreotide Acetate 500 mcg/ 501 mls @ 25.05 mls/hr 06/19/20 16:45 06/23/20 03:10 Sodium Chloride IVCONT 25 mcg/hr .Q20H CHARLEE 25.05 mls/hr Administration 25 MCG/HR Sodium Chloride 1,000 mls @ 80 mls/hr 06/22/20 09:15 06/23/20 08:40 Ns IVCONT 80 mls/hr .[id number] [facility]E Administration Albumin Human 100 mls @ 100 mls/hr 06/22/20 16:00 06/23/20 10:06 Kedbumin 25 % IV 06/23/20 16:59 Infused Q8H [facility]E Infusion Lactulose 30 gm 06/19/20 21:00 06/23/20 08:39 Lactulose 20 Gm/30 Ml Solution PO 30 gm BID [facility]LEE Administration Metoprolol Succinate 25 mg 06/19/20 09:00 06/23/20 08:39 Metoprolol Succinate Er 25 Mg Tab.Er.24h PO 25 mg DAILY [facility] Administration Protocol Nystatin 1 appl 06/21/20 09:00 06/23/20 08:40 Nystatin Powder 15 Gm Bottle TOPICAL 1 appl BID [facility]LEE Administration Protocol Omeprazole 20 mg 06/22/20 09:15 06/23/20 06:32 Omeprazole 20 Mg Capsule.Dr PO 20 mg BID@8672,6226 [facility]E Administration Ondansetron HCl 4 mg 06/19/20 01:13 Ondansetron Hcl 4 Mg/2 Ml Vial IVPUSH Q8H PRN Nausea and Vomiting Pharmacy Consult 1 each 06/18/20 19:55 Consult Rx Perform Med Rec MISCELLANE ONCE PRN Consult order Phenobarbital 15 mg 06/24/20 09:00 06/23/20 10:06 Phenobarbital 15 Mg Tablet PO 06/25/20 09:01 15 mg DAILY [facility]E Administration Protocol Prednisolone Sodium Phosphate 40 mg 06/21/20 09:20 06/23/20 08:42 Prednisolone Sodium Phosphate 15 Mg/5 Ml Solution PO Not Given DAILY [facility] Sodium Chloride 3 ml 06/19/20 01:13 06/23/20 08:39 0.9 % Sodium Chloride Flush 3 Ml Syringe IVFLUSH 3 ml QSHIFT [facility] Administration Sucralfate 1 gm 06/19/20 21:00 06/23/20 12:41 Sucralfate Oral Suspension 1 Gm/10 Ml Oral.Susp PO 1 gm QIDACHS CHARLEE Administration Thiamine HCl 100 mg 06/19/20 09:00 06/23/20 08:39 Thiamine Hcl 100 Mg Tablet PO 100 mg DAILY [facility] Administration Trazodone HCl 50 mg 06/20/20 21:00 06/22/20 19:43 Trazodone Hcl 50 Mg Tablet PO 50 mg BEDTIME [facility]LEE Administration Labs CBC & Chem 7: 06/23/20 08:15 06/23/20 08:15 Assessment and Plan (1) Macrocytic anemia: Status: Acute (2) Hyperammonemia: Status: Acute (3) Hyperbilirubinemia: Status: Acute (4) Alcoholic intoxication: Status: Acute (5) Transaminitis: Status: Acute (6) Alcohol withdrawal: Status: Acute (7) Coagulopathy: Status: Acute Assessment and Plan: This is a 55-year-old female with past medical history of ulcerative colitis as well as hypertension who presents to the hospital shown to have anemia as well as an alcohol withdrawal Symptomatic anemia secondary to GI bleed likely multifactorial, GIB, alcoholism, coagulopathy 5.5 on admission received 4 units of PRBCs in total Hemoglobin improved to 9 Continue on PPI, octreotide and Carafate GI input appreciated, patient wants to hold off on EGD for now Monitor H&H Alcoholic hepatitis transaminitis trending down secondary to alcohol abuse Maddery score 80 with elevated bilirubin and PT Elevated LDH Bilirubin trending down Abdominal ultrasound showing no obstruction but chronic liver disease Continue prednisone Monitor LFT alcohol withdrawal resolving Continue phenobarb protocol Continue thiamine and folic acid Refusing care team Hyperammonemia improving Ultrasound showing chronic liver disease Keep on lactulose with target of 2 bowel movements daily Yenifer likely multifactorial from dehydration GI bleed and underlying liver disease Continue IV fluid Creatinine slowly trending Monitor kidney function Hold lisinopril Avoid nephrotoxins coagulopathy elevated INR of 2.3 Received vitamin K follow PT INR Hypomagnesemia Mg of 1.5 Replacement given, to monitor hypertension Hold lisinopril for acute kidney injury Thrombocytopenia Platelets low likely secondary to alcoholism continue to monitor DVT prophylaxis: SCDs
--- NOTE | 2020-06-23 13:40 | PM.EVENT ---
Event Note Date of Service: 06/23/20 Event Note: QUERY ON DISCHARGE PLAN: PATIENT WANTS TO FOLLOW WITH HER OWN GI DOC. LIVER DISEASE--? ACUTE ALCOHOL INDUCED STEATOHEPATITIS WITH COAGULOPATHY, HYPOALBUMINEMIA AND ELEVATED AMMONIA ON ADMISSION CONTINUE PREDNISONE TAPER OVER 2-4 WEEKS. NO ALCOHOL. NEEDS TO SEE HER PCP AND GI DOC BJ NEEDS CT ABDOMEN AND PELVIS--ASSESS HOW MUCH POSSIBLE CIRRHOSIS PRESENT AND / WHAT DOES COLON LOOK LIKE WITH HX OF ULCERATIVE COLITIS CONTINUE OMEPRAZOLE 20 bid LACTULOSE ADJUSTED TO HAVE 2-3 bmS DAILY MONITOR GLUCOSE,K+ MAG CLOSELY NO ALCOHOL STRONG EMPHASIS ON PROTEIN CALORIE NUTRTION WILL NEED EGD TO ASSESS FOR VARICES AND MUCOSAL DISEASE COLO WAS ? JUST DONE BY CHRISSY MAY NOT NEED REPEAT.(OBV STEROIDS WILL COVER IN THE INTERIM.)
[2020-06-23 13:53] LABS: Magnesium 1.6 mg/dL (1.6-2.6)
[2020-06-23 15:34] VITALS: BP 139/82; PULSE 65; RESP 18; TEMP 36.6; O2SAT 99
[2020-06-23 19:02] VITALS: BP 148/68; PULSE 72; RESP 18; TEMP 36.5; O2SAT 96
[2020-06-23] MEDS: traZODone HCL 50 MG TABLET PO (20:13)
[2020-06-24] VITALS: BP 131/70; PULSE 67; RESP 18; TEMP 36.8; O2SAT 97
[2020-06-24 04:00] VITALS: BP 101/71; PULSE 70; RESP 18; TEMP 36.9; O2SAT 98
[2020-06-24 06:00] VITALS: BMI 43.2
[2020-06-24] MEDS: Omeprazole 20 MG CAPSULE.DR PO (06:09)
[2020-06-24 06:23] LABS: INTERNATIONAL NORM RATIO 2.5 (0.9-1.1); Prothrombin Time 30.3 SEC (10.8-13.0)
[2020-06-24 08:00] VITALS: PULSE 73
[2020-06-24 08:11] LABS: HBc Num1 0.24 S/CO (0.00-0.79); Hepatitis B Core Antibody Nonreactive (Nonreactive); ~Hepatitis B Surface Antibody REACTIVE (Nonreactive)
[2020-06-24 08:16] LABS: MANUAL DIFF FLAG NO
[2020-06-24 08:19] LABS: Basophils Percent Auto 0.5 % (0-2); Eosinophils Absolute Auto 0.3 X10*3/uL (0.0-0.4); Eosinophils Percent Auto 3.5 % (0-4); Hematocrit 26.1 % (37-47); Hemoglobin 8.8 g/dl (12.0-16.0); Imm Gran Abs Auto 0.07 X10*3/uL (0.00-0.03); Imm Gran Pct Auto 0.9 % (0.0-0.4); Lymphocytes Absolute Auto 0.9 X10*3/uL (1.2-4.9); Lymphocytes Percent Auto 11.1 % (20-40); Mean Corpuscular HGB Conc 33.7 g/dl (31.0-35.0); Mean Corpuscular Hemoglobin 36.2 pg (27.0-33.0); Mean Corpuscular Volume 107.4 fL (80-98); Mean Platelet Volume 12.6 fL (9.4-12.3); Monocytes Absolute Auto 1.2 X10*3/uL (0.1-1.2); Monocytes Percent Auto 15.9 % (2-11); Neutrophils Absolute Auto 5.3 X10*3/uL (2.0-8.3); Neutrophils Percent Auto 68.1 % (45-73); Red Blood Count 2.43 X10*6/uL (4.20-5.50); Red Cell Distribution Width 22.7 % (11.0-16.0); White Blood Count 7.8 X10*3/uL (4.8-10.8)
[2020-06-24 08:24] LABS: Platelet Count 70 X10*3/uL (160-400)
[2020-06-24 08:29] LABS: Hepatitis B Surface Antigen Negative (Negative); ~HepC Num1 0.31 S/CO (0.00-0.79); ~Hepatitis C Antibody Nonreactive (Nonreactive)
[2020-06-24 08:30] LABS: Alanine Aminotransferase 23 U/L (0-31); Albumin Level 2.7 g/dL (3.5-5.0); Alkaline Phosphatase 95 U/L (39-117); Anion Gap 12 (12-20); Aspartate Amino Transferase 55 U/L (5-31); Bilirubin Direct 2.9 mg/dL (0.0-0.5); Bilirubin Total 9.7 mg/dL (0.0-1.0); Blood Urea Nitrogen 34 mg/dL (9-16); Calcium 7.6 mg/dL (8.4-10.2); Carbon Dioxide 17 mmol/L (22-29); Chloride 111 mmol/L (96-108); Creatinine Clr Calc Pharmacy 50.1; Estimated Glomerular Filt Rate 33; Glucose Random 118 mg/dL (60-115); Potassium 4.4 mmol/L (3.3-5.1); Sodium 136 mmol/L (135-145); Total Protein 5.7 g/dL (6.5-8.0)
[2020-06-24] MEDS: Lactulose 20 GM/30 ML SOLUTION 30 GM PO (09:51)
[2020-06-24] MEDS: Sucralfate Oral Suspension 1 GM/10 ML ORAL.SUSP PO (09:51)
[2020-06-24] MEDS: Metoprolol Succinate ER 25 MG TAB.ER.24H PO (09:51)
[2020-06-24] MEDS: Thiamine HCL 100 MG TABLET PO (09:52)
[2020-06-24] MEDS: Folic Acid 1 MG TABLET PO (09:52)
[2020-06-24] MEDS: PHENobarbitaL 15 MG TABLET PO (09:52)
[2020-06-24 10:01] VITALS: BP 138/58; PULSE 70; RESP 16; TEMP 36.7; O2SAT 98
--- NOTE | 2020-06-24 10:35 | PC.NURSE ---
patient states her intent to leave [facility]. states she understands risks of leaving. nursing extrusion press supervisor in to see patient. patient retstates risks to nursing extrusion press supervisor, signs [facility] form.
--- NOTE | 2020-06-24 11:01 | MHC.CM.PN ---
pt left [facility] confirmed with pts mother marshall that she is here to ,pick her up [phone] mother also stated that pt has an appt at 10 tomorrow with her pcp that she will be driving pt to and an appt with care partner dr georges llanes in 1 to 2 weeks which mother will be driignher to appt mother also reports that pt has a sister and supportive neighbors who will be supporting her
--- NOTE | 2020-06-24 11:54 | PM.DS ---
DS: Providers Provider Date of Service: 06/25/20 Date of admission: 06/18/20 22:10 Primary care physician: Unknown Physician Consults: 06/19/20 08:31 Consult to Gastroenterology Routine Consulting Provider: Tere Verdugo Reason for consultation: Blood loss anemia, Alcoholism, transaminitis. for your eval. 06/22/20 09:05 Consult to Nephrology Routine Consulting Provider: Gideon Lynch Reason for consultation: TREMAINE DS: Diagnosis Discharge Diagnosis (1) Anemia: Status: Acute (2) Steatohepatitis due to ingestible alcohol: Status: Acute (3) Macrocytic anemia: Status: Acute (4) Hyperammonemia: Status: Acute (5) Hyperbilirubinemia: Status: Acute (6) Alcoholic intoxication: Status: Acute (7) Transaminitis: Status: Acute (8) Alcohol withdrawal: Status: Acute (9) Coagulopathy: Status: Acute DS: Medications Discharge Medications Home Medications: Home Medications Medication Instructions Recorded Confirmed lisinopril 1 tab PO BEDTIME 06/18/20 06/18/20 metoprolol succinate 1 tab PO DAILY 06/18/20 06/18/20 trazodone 1 tab PO DAILY 06/18/20 06/18/20 DS: Summary Hospital Course Hospital Course: HPI 55-year-old female with past medical history of alcohol abuse, ulcerative colitis who presents to the hospital after the police was called on her for driving erratically in a parking lot. Patient reports that she was grocery shopping and maybe her neighbor called the police because she was told she was driving erratically. She did feel dizzy starting last night, has been feeling weak since last night, denies having any chest pain, no shortness of breath, no headache, no change in vision, no abdominal pain nausea or vomiting, she reports that since being in the ED she started vomiting from her mouth although she feels that has to do with her gums and not to do with her vomiting blood or coughing up blood. She denies having any bright red blood per rectum, denies any melena or tarry stools. She denies using any NSAIDs. She is in clear alcohol withdrawal but when I asked her about her alcohol habits reports that she drinks about 1 to 2 times a week and only about 1-2 glasses of wine but tells me that she feels like she is withdrawing right now. She is also alcohol positive on arrival to the ED although denies drinking alcohol today. Reports her last drink was 2 days ago. On arrival to the ED patient has a temp of 99.6, heart rate of 116, blood pressure of 129/46 respiratory rate of 20, satting 95% on room air Labs are significant for WBC count of 10.2, hemoglobin of 5.5 with no previous level for comparison, hematocrit of 16.5, PT of 30.7 INR of 2.8, platelet count of 87, sodium of 135, potassium 5.6, BUN of 46, creatinine of 1.91 (no previous), she has calcium of 7.9, total bili of 7.8, AST of 117, ALT of 39, alk-phos of 127, ammonia of 102, albumin of 2.7, occult stool blood positive She tells me that she usually undergoes colonoscopy every 3 years, last colonoscopy was 2 years ago and they found polyps, reports that her cardiac exercise physiologist was concerned about these polyps although they were benign. She right now adamantly refuses to be seen by cardiac exercise physiologist and or have any EGD or colonoscopy in-patient and would like to follow-up with her cardiac exercise physiologist as patient. She is agreeable to be admitted for treatment of anemia and alcohol withdrawal. Hospital course 55 y o f admitted with GI bleed and Acute alcoholic hepatitis and alcohol withdrawl patient recieved 3 units of PRBCs and phenobarbitone protocol , Gastroenterology was consulted recomended EGd , but patient refused EGd and wanted to get done with her own gastroenterology , patient LFTs were elevated mildly trended down , alcohol withdrawl resolved , patient refused care team consult , patient hemoglobin improved with transfusion , patient refused to stay in hospital and refused further treatment , Explained to patient risk of not getting treatment and including worsening bleeding patient understand risk of bleeding and including but wants to see her own gi doctor , patient left against medical advice Time Spent with Patient Time attestation: Total time spent providing and/or coordinating discharge services: Discharge coordination time: Greater than 30 minutes Physical Exam Vital Signs: Vital Signs: Last Vital Signs Temp 98.0 F 06/24/20 10:01 Pulse 70 06/24/20 10:01 Resp 16 06/24/20 10:01 BP 138/58 L 06/24/20 10:01 Pulse Ox 98 06/24/20 10:01 Body Mass Index 43.2 DS: Data Data Completed and Pending Labs on day of discharge: Laboratory Results - last 24 hr 06/22/20 06/23/20 06/24/20 13:30 08:15 05:20 WBC RBC Hgb Hct MCV MCH MCHC RDW Plt Count MPV Immature Gran % (Auto) Neut % (Auto) Lymph % (Auto) [place] % (Auto) Eos % (Auto) Baso % (Auto) Lymph # (Auto) [place] # (Auto) Eos # (Auto) Baso # (Auto) Abs Immat Gran (auto) Absolute Neuts (auto) Absolute Nucleated RBC Nucleated RBC % (auto) PT 30.3 H INR 2.5 H Sodium Potassium Chloride Carbon Dioxide Anion Gap BUN Creatinine Estim Creat Clear Calc Estimated GFR Random Glucose Calcium Magnesium 1.6 Total Bilirubin Direct Bilirubin AST ALT Alkaline Phosphatase Total Protein Albumin Hep Bs Antigen Negative Hep Bs Antibody REACTIVE Hep B Core Total Ab Nonreactive Hepatitis C Ab (EIA) Nonreactive 06/24/20 06/24/20 05:20 05:20 WBC 7.8 RBC 2.43 L Hgb 8.8 L Hct 26.1 L MCV 107.4 H MCH 36.2 H MCHC 33.7 RDW 22.7 H Plt Count 70 L MPV 12.6 H Immature Gran % (Auto) 0.9 H Neut % (Auto) 68.1 Lymph % (Auto) 11.1 L [place] % (Auto) 15.9 H Eos % (Auto) 3.5 Baso % (Auto) 0.5 Lymph # (Auto) 0.9 L [place] # (Auto) 1.2 Eos # (Auto) 0.3 Baso # (Auto) 0.0 Abs Immat Gran (auto) 0.07 H Absolute Neuts (auto) 5.3 Absolute Nucleated RBC 0.000 Nucleated RBC % (auto) 0.0 PT INR Sodium 136 Potassium 4.4 Chloride 111 H Carbon Dioxide 17 L Anion Gap 12 BUN 34 H Creatinine 1.61 H Estim Creat Clear Calc 50.1 Estimated GFR 33 Random Glucose 118 H Calcium 7.6 L Magnesium Total Bilirubin 9.7 H Direct Bilirubin 2.9 H AST 55 H ALT 23 Alkaline Phosphatase 95 Total Protein 5.7 L Albumin 2.7 L Hep Bs Antigen Hep Bs Antibody Hep B Core Total Ab Hepatitis C Ab (EIA) Discharge Plan Discharge Patient Disposition: Left Against Medical Advice Referrals: Physician,Unknown [Primary Care Provider] - Discharge Medications: No Action trazodone 50 mg tablet 1 tab PO DAILY RF: 0 metoprolol succinate 25 mg tablet extended release 24 hr 1 tab PO DAILY RF: 0 lisinopril 40 mg tablet 1 tab PO BEDTIME RF: 0 Discharge Orders: Discharge Order (Routine); Ordered 06/25/20 Ordered By: Venkatesh Shetty Care Plan Goals: against medical advice Health Concerns: against medical advice Plan of Treatment: against medical advice Discharge Date/Time: 06/24/20 10:38
== END 2020-06-24 10:38 | disposition left against medical advice (07) | DRG 433 ==
LOC: HO.ED 20:39 → HO.EDOVER 23:02 → HO.IMC 06-19 00:11
PROVIDERS: Internal Medicine Gastroenterology; Internal Medicine Nephrology; Physician Assistant; Student in an Organized Health Care Education/Training Program; Admitting Provider Internal Medicine; Emergency Provider Emergency Medicine; Visit Provider Internal Medicine
DX: K70.10 Alcoholic hepatitis without ascites (principal); Z68.41 Body mass index [BMI] 40.0-44.9, adult; D68.9 Coagulation defect, unspecified; N17.9 Acute kidney failure, unspecified; F10.239 Alcohol dependence with withdrawal, unspecified; K92.2 Gastrointestinal hemorrhage, unspecified; K70.30 Alcoholic cirrhosis of liver without ascites; D51.3 Other dietary vitamin B12 deficiency anemia; D53.9 Nutritional anemia, unspecified; R74.01 Elevation of levels of liver transaminase levels; F10.229 Alcohol dependence with intoxication, unspecified; E86.0 Dehydration; D69.6 Thrombocytopenia, unspecified; E66.01 Morbid (severe) obesity due to excess calories; E87.5 Hyperkalemia; Z20.822 Contact with and (suspected) exposure to COVID-19; Z79.899 Other long term (current) drug therapy
CPT/HCPCS: 36415; 70450; 76705; 80048; 80053; 80076; 80307; 80320; 82140; 82272; 82550; 82607; 82746; 82977; 83010; 83615; 83735; 84134; 84443; 85025; 85027; 85060; 85610; 85730; 86140; 86704; 86706; 86709; 86803; 86850; 86900; 86923; 87340; 87635; 89055; 96365; 99285; J0610; J2354; J2560; J3430; J3475; P9016; P9047